=== PATIENT | female | born 1940 | race Caucasian/White ===

== ENCOUNTER → 2023-04-22 10:59 | Outpatient (REF) | payer MEDICARE, SELFPAY | LOC: DHCBC/DCA 10:59 | PROVIDERS: ATTENDING PHYSICIAN Internal Medicine Cardiovascular Disease; FAMILY PHYSICIAN Family Medicine | DX: R07.89 Other chest pain (principal) | CPT/HCPCS: 78452; 93017; A9500; J2785 ==

== ENCOUNTER 2023-11-03 13:51 | Emergency (ER) | payer MEDICARE, SELFPAY ==
[2023-11-03 13:57] VITALS: BP 193/115; BMI 24.5
[2023-11-03 14:15] LABS: % Basophils 0.3 % (0-2); % Eosinophils 0.8 % (0-6); % Immature Granulocytes 0.3 % (0-0.5); % Lymphocytes 14.8 % (20.5-51.1); % Monocytes 7.3 % (1.7-9.3); % Neutrophils 76.5 % (42.2-75.2); Absolute Eosinophils 0.1 10^3/uL (0-0.7); Absolute Lymphocytes 1.8 10^3/uL (1.2-3.4); Absolute Monocytes 0.9 10^3/uL (0.1-0.6); Hematocrit 38.1 % (37.0-47.0); Hemoglobin 13.1 g/dL (12.0-16.0); Mean Corp Hgb Conc. 34.4 g/dL (33.0-37.0); Mean Corpuscular Hgb 30.3 pg (27.0-31.0); Mean Corpuscular Volume 88.2 fL (81.0-99.0); Mean Platelet Volume 9.3 fL (7.4-10.4); Nucleated Red Blood Cells % 0 %; Platelet Count 318 10^3/uL (130-400); Red Blood Cell Count 4.32 10^6/uL (4.20-5.40); Red Cell Dist. Width 14.8 % (11.5-14.5); White Blood Cell Count 11.8 10^3/uL (4.8-10.8)
[2023-11-03 14:25] LABS: ALT (SGPT) 24 U/L (0-35); AST (SGOT) 30 U/L (14-36); Albumin 4.4 g/dl (3.5-5.0); Alkaline Phosphatase 77 U/L (38-126); Blood Urea Nitrogen 14 mg/dl (7-17); Calcium 9.9 mg/dl (8.4-10.2); Carbon Dioxide 27 mmol/L (22-30); Chloride 99 mmol/L (98-107); Estimated Creatinine Clearance 42 ml/min; Glucose 105 mg/dl (70-99); Potassium 3.7 mmol/L (3.5-5.1); Sodium 133 mmol/L (135-145); Total Bilirubin 0.9 mg/dl (0.2-1.3); Total Protein 6.6 g/dl (6.3-8.2); eGFR > 60.00
--- NOTE | 2023-11-03 14:49 | ED.GENMED ---
History of Present Illness
<BREE Garces Jr. Last Filed: 11/04/23 08:06>
General
Chief Complaint: Blood Pressure Problem
Source: patient
Exam Limitations: none
Time Seen by Provider: 11/03/23 14:21
Nursing documentation reviewed up to this point in time: agreed with
History of Present Illness
History of Present Illness:
84-year-old female with past medical history of hypertension previous A-fib hyperlipidemia presenting to the emergency department today with right-sided shoulder she has had this over the past few days pain made worse with movement. Her blood
pressure has been elevated but she has not been taking her blood pressure meds over the past few weeks because she 'did not think of it'. Denies any chest pain shortness of breath nausea vomiting diaphoresis. Denies any additional symptoms
otherwise.
Past History
<Jackson Benjamin Jr., PA-C - Last Filed: 11/04/23 08:06>
Past History
ED Past Medical History: Arrthythmia (afib), HTN, Hypercholesterolemia and Other (diverticulitis, OQA)
ED Past Surgical History: Orthopedic
Social History
Tobacco: Former smoker
Alcohol: None
Drug: None
Personal: Other
Living: with family
Employment: Other
Family History
Family History: Other
Review of Systems
<BREE Garces Jr. Last Filed: 11/04/23 08:06>
Review of Systems
Allergies reviewed?: Yes
All Other Systems: ROS reviewed and negative except as documented in HPI and ROS
Phy Exam
<BREE Garces Jr. Last Filed: 11/04/23 08:06>
Physical Exam
Physical Exam:
GENERAL: Alert , in no apparent distress
EYE: pupils equal and reactive
NECK: Supple, no significant adenopathy.
ENT: o/p clr, mmm.
CARDIAC: Regular rate and rhythm .
LUNGS: Clear breath sounds bilaterally, no acute respiratory distress, no wheezes/rales/rhonchi
ABDOMEN: Soft, without focal tenderness, no r/g, no cvat
NEUROLOGICAL: Alert and oriented, no focal neuro deficits
SKIN: Warm and dry, skin intact.
MUSCULOSKELETAL: Reproducible discomfort to the right shoulder without overlying skin changes tenderness palpation mainly to the deltoid region increased discomfort with pushing and pulling motion at the shoulder no edema, well perfused.
PSYCH: Normal and appropriate interaction.
Course
<Jackson Benjamin Jr., PA-C - Last Filed: 11/04/23 08:06>
Orders/Labs/Results
Orders:
Orders
11/03/23 13:57
Electrocardiogram (*1) Urgent
Reason for Study: Chest Pain
Cardiac Monitoring- Treatment ONCE
EKG- Treatment ONCE
IV Insert/Care/Rem.- Treatment PRN
O2 Therapy [RESP] Urgent
Titrate/Wean O2 to maintain O2 sat greater than (%): 90
Special Instructions: Maintain sats >/=90%
Pulse Ox/spot Check [RESP] Urgent
Quantity: 1
Special Instructions: ON ROOM AIR
11/03/23 14:01
Complete Blood Count/With Diff Urgent
Comprehensive Metabolic Panel Urgent
11/03/23 14:42
Hydrochlorothiazide [Oretic] 25 mg PO NOW STA
CR Shoulder, Trauma - Right Urgent
Comment:
Reason For Exam: shoulder pain to anterior deltoid region
11/03/23 14:44
Oxycodone [Roxicodone] 5 mg PO NOW STA
11/03/23 15:00
Diltiazem [Cardizem] 90 mg PO NOW STA
11/03/23 15:15
Troponin I Urgent
Abnormal Lab Results
11/03/23
14:01
WBC 11.8 H 10^3/uL
(4.8-10.8)
RDW 14.8 H %
(11.5-14.5)
Absolute Neuts (auto) 9.0 H 10^3/uL
(1.4-6.5)
Absolute Monos (auto) 0.9 H 10^3/uL
(0.1-0.6)
Neutrophils % 76.5 H %
(42.2-75.2)
Lymphocytes % 14.8 L %
(20.5-51.1)
Sodium 133 L mmol/L
(135-145)
Glucose 105 H mg/dl
(70-99)
11/03/23 14:01
11/03/23 14:01
Vital Signs
Initial and Last Documented VS:
Initial Vital Signs
Temp Pulse Resp BP Pulse Ox
98.4 F 107 19 193/115 97
11/03/23 13:57 11/03/23 13:57 11/03/23 13:57 11/03/23 13:57 11/03/23 13:57
Last Documented Vital Signs
Temp Pulse Resp BP Pulse Ox
98.4 F 93 13 196/114 97
11/03/23 13:57 11/03/23 16:48 11/03/23 16:03 11/03/23 16:21 11/03/23 16:30
<Cj Bernstein PA-C - Last Filed: 11/03/23 16:51>
Orders/Labs/Results
Orders:
Orders
11/03/23 13:57
Electrocardiogram (*1) Urgent
Reason for Study: Chest Pain
Cardiac Monitoring- Treatment ONCE
EKG- Treatment ONCE
IV Insert/Care/Rem.- Treatment PRN
O2 Therapy [RESP] Urgent
Titrate/Wean O2 to maintain O2 sat greater than (%): 90
Special Instructions: Maintain sats >/=90%
Pulse Ox/spot Check [RESP] Urgent
Quantity: 1
Special Instructions: ON ROOM AIR
11/03/23 14:01
Complete Blood Count/With Diff Urgent
Comprehensive Metabolic Panel Urgent
11/03/23 14:42
Hydrochlorothiazide [Oretic] 25 mg PO NOW STA
CR Shoulder, Trauma - Right Urgent
Comment:
Reason For Exam: shoulder pain to anterior deltoid region
11/03/23 14:44
Oxycodone [Roxicodone] 5 mg PO NOW STA
11/03/23 15:00
Diltiazem [Cardizem] 90 mg PO NOW STA
11/03/23 15:15
Troponin I Urgent
Abnormal Lab Results
11/03/23
14:01
WBC 11.8 H 10^3/uL
(4.8-10.8)
RDW 14.8 H %
(11.5-14.5)
Absolute Neuts (auto) 9.0 H 10^3/uL
(1.4-6.5)
Absolute Monos (auto) 0.9 H 10^3/uL
(0.1-0.6)
Neutrophils % 76.5 H %
(42.2-75.2)
Lymphocytes % 14.8 L %
(20.5-51.1)
Sodium 133 L mmol/L
(135-145)
Glucose 105 H mg/dl
(70-99)
11/03/23 14:01
11/03/23 14:01
Vital Signs
Initial and Last Documented VS:
Initial Vital Signs
Temp Pulse Resp BP Pulse Ox
98.4 F 107 19 193/115 97
11/03/23 13:57 11/03/23 13:57 11/03/23 13:57 11/03/23 13:57 11/03/23 13:57
Last Documented Vital Signs
Temp Pulse Resp BP Pulse Ox
98.4 F 93 13 196/114 97
11/03/23 13:57 11/03/23 16:48 11/03/23 16:03 11/03/23 16:21 11/03/23 16:30
<Jackson Benjamin Jr., PA-C - Last Filed: 11/04/23 08:06>
MDM/Problems Addressed
MDM/Problems Addressed:
84-year-old female presenting to the emergency department today with concerns of right shoulder discomfort ongoing for the last few days. Blood pressure has been elevated but claims that she has not been taking her blood pressure meds. She is
willing to restart the blood pressure medications. She previously was taking diltiazem as well as hydrochlorothiazide. She was given a dose of these here. Denies any ongoing chest pain EKG without signs of acute ischemia labs unremarkable. Pain
reproducible to the right shoulder. Right shoulder pain very unlikely to be referred pain and is reproducible likely meaning pain is mechanical, musculoskeletal. Here blood pressure significantly improving after treatment. X-ray without signs of
acute abnormalities. Troponin negative. Stable for outpatient management return precautions given.
<Cj Bernstein PA-C - Last Filed: 11/03/23 16:51>
*Critical Care Note
Total Time (30-74mins, 75-104mins- exclusive of procedures): Not Applicable
<Cj Bernstein PA-C - Last Filed: 11/03/23 16:51>
Patient Management
Social determinants of health affecting care: Living situation
Discussion with other providers: PCP
Escalation/DeEscalation of care consider admission/obs:
Patient received in sign out pending troponin. Trop is negative. Patient BP remains high however it was noted patient stopped taking her BP meds 2 weeks ago. Patient counselled on importance of taking meds and a new Rx for her was sent to pharmacy.
I advised patient to contact PCP office for follow up visit tomorrow morning. I also messaged patients PCP via [facility] about her ED visit
ED Attending Note
<Jackson Benjamin Jr., PA-C - Last Filed: 11/04/23 08:06>
-
Portions of this chart may have been created with voice recognition software.� Occasional wrong word or��sound alike� substitutions may have occurred due to the inherent limitations of voice recognition software.
Discharge Plan
Departure
Patient Disposition: Home (Routine Discharge)
Date of Disposition: 11/03/23
Time of Disposition: 16:46
Patient with high blood pressure during this ER visit?: Yes
Condition: Good
Covid-19: Not Applicable
Discharge Problem:
Shoulder pain, High blood pressure
Instructions: Shoulder Pain ED, BLOOD PRESSURE
Prescriptions:
New
diltiazem HCl 240 mg capsule,extended release 24hr
240 mg PO DAILY 14 Days Qty: 14 0RF
hydrochlorothiazide 25 mg tablet
25 mg PO DAILY 14 Days Qty: 14 0RF
No Action
Iron
65 mg PO WEEKLY
Rx Instructions:
'2x/wk'
atorvastatin 10 MG tablet
10 mg PO DAILY Qty: 0 0RF
hydrochlorothiazide 25 MG tablet
25 mg PO DAILY
cyanocobalamin (vitamin B-12) 1,000 MCG tablet
1,000 mcg PO DAILY
nitroglycerin 0.4 MG tablet, sublingual
0.4 mg sublingual [id number] PRN (Reason: CHEST PAIN)
Patient Comments:
patient does not remember last time she took but stated it could be months ago
diphenhydramine-acetaminophen [Tylenol PM Extra Strength] 1 EACH tablet
2 ea PO HS PRN (Reason: SLEEP)
diltiazem HCl 240 mg Tablet Extended Release 24 Hr
240 mg PO DAILY
cranberry extract 50 mg Tablet,Chewable
50 mg PO DAILY
mupirocin 2 % ointment
1 applic topical BID Qty: 1 0RF
Patient Comments:
bid x 3 days, last dose 08/24/22 am 0700
multivitamin Tablet
1 tab PO DAILY
cetirizine [Aller-Enrike] 10 mg Tablet
10 mg PO DAILY
potassium chloride 10 mEq Tablet Extended Release
10 meq PO DAILY
cholecalciferol (vitamin D3) 1,000 UNITS tablet
1,000 units PO DAILY
sennosides [Senna Laxative] 8.6 mg Tablet
17.2 mg PO BID Qty: 2 0RF
acetaminophen 325 mg Tablet
650 mg PO Q4HWA Qty: 2 0RF
aspirin 325 mg Tablet
325 mg PO DAILY Qty: 1 0RF
magnesium hydroxide 400 mg/5 mL Suspension
30 ml PO DAILYPRN PRN (Reason: constipation) Qty: 30 0RF
docusate sodium 100 mg Capsule
100 mg PO BID Qty: 1 0RF
pantoprazole [Protonix] 40 mg tablet,delayed release (DR/EC)
40 mg PO DAILY Qty: 30 0RF
meloxicam 15 mg tablet
15 mg PO DAILY Qty: 14 0RF
Rx Instructions:
take with food
post-op
oxycodone 5 mg tablet
5 - 7.5 mg PO Q6HPRN PRN (Reason: 1 tab moderate-2 tabs severe pain) Qty: 30 0RF
Rx Instructions:
Dx surgery
ongoing therapy
Post-op use
prednisone 10 mg tablet
40 mg PO TAPER Qty: 10 0RF
Rx Instructions:
4 tab(40mg) day 1, 3 tabs(30mg) day 2, 2 tabs(20mg) day3,
1 tab (10mg) day 4, then stop
tramadol 50 mg tablet
25 mg PO BID Qty: 10 0RF
Rx Instructions:
Dx Orthopedic surgery
Ongoing therapy
post-op
Referrals:
Parvez Power MD [Family Provider] -
Activity Restrictions/Additional Instructions:
You came to the emergency department today with concerns of shoulder pain. This is likely from your shoulder. The remainder of your workup did not show any emergent findings. Your blood pressure was elevated please resume your diltiazem and
hydrochlorothiazide daily and follow-up closely with the primary care doctor within 1 week. Return to the emergency department any worsening, new or concerning symptoms.
Interventions
Interventions:
*Risk Screen - Suicide Last Done: 11/03/23 13:57
*General Assessment Last Done: 11/03/23 13:57
*Neglect/Abuse Screening Last Done: 11/03/23 13:57
ED- Fall Risk Assessment Last Done: 11/03/23 13:57
*ED COVID-19 Vaccine History Last Done: 11/03/23 13:57
*Nursing Disposition Last Done: 11/03/23 17:31
ED- Cardiac Assessment Last Done: 11/03/23 13:57
ED- Neurological Assessment Last Done: 11/03/23 13:57
ED- Pulmonary Assessment Last Done: 11/03/23 13:57
Discharge Date and Time
Discharge Date/Time: 11/03/23 17:31
Print Language: SLOVENIAN
[2023-11-03] MEDS: ROXICODONE 5 MG PO (15:14)
[2023-11-03] MEDS: ORETIC 25 MG PO (15:14)
[2023-11-03] MEDS: CARDIZEM 90 MG PO (15:14)
[2023-11-03 15:30] VITALS: BP 134/113
[2023-11-03 15:50] VITALS: BP 189/108
[2023-11-03 16:03] VITALS: BP 189/111
[2023-11-03 16:11] LABS: Troponin I < 0.012 ng/ml
[2023-11-03 16:21] VITALS: BP 196/114
== END 2023-11-03 17:31 | disposition home or self-care (01) ==
LOC: EMR 13:51
PROVIDERS: Physician Assistant; EMERGENCY PHYSICIAN Emergency Medicine; FAMILY PHYSICIAN Family Medicine
DX: M25.511 Pain in right shoulder (principal); I10 Essential (primary) hypertension; I48.91 Unspecified atrial fibrillation; E78.00 Pure hypercholesterolemia, unspecified; Z87.891 Personal history of nicotine dependence
CPT/HCPCS: 99283; 73030; 80053; 84484; 85025; 93005

== ENCOUNTER 2023-11-06 23:21 | Inpatient (IN) | payer MEDICARE, SELFPAY ==
[2023-11-06] VITALS (8 sets, daily range): BP systolic 165–194; BP diastolic 90–129; BMI 26.3
--- NOTE | 2023-11-06 19:13 | ED.GENMED ---
History of Present Illness
General
Chief Complaint: Abdominal Symptoms
Time Seen by Provider: 11/06/23 19:13
History of Present Illness
History of Present Illness:
HPI: The patient presents due to a general unwell feeling. She states that she has not eaten in 2 days. She initially told me that she has no appetite and then tells me that she is hungry now and wants to eat. She denies any abdominal pain. As I
am evaluating her, I see an emesis basin that has some saliva in it.
EXAM:
GENERAL: Well appearing in no distress
HEENT: Moist oral mucosa
CARDIOVASCULAR: No murmurs, normal heart rate, regular rhythm, No chest wall tenderness
PULMONARY: No respiratory distress, breath sounds are clear and equal
ABDOMEN: Soft with no peritoneal signs, very mild diffuse abdominal tenderness
NEUROLOGIC: Excellent strength all extremities, no coordination deficits
PSYCHIATRIC: Appropriate mental status, reasonable insight and judgement but appears somewhat confused at times
EXTREMITIES: Nontender, no edema, moves all extremities equally
SKIN: No rash, no lesions
TIME OF INITIAL ENCOUNTER: 7:15 PM
NUMBER AND COMPLEXITY OF PROBLEMS ADDRESSED AT THE ENCOUNTER
� Chronic conditions affecting care: A-fib, high blood pressure, hyperlipidemia, diverticular disease, skin cancer, has had appendectomy, has had colectomy with loop ileostomy in 2016, COPD
� Acute Exacerbation and/or Progression of Chronic Illness: This is an acute problem
� Differential Diagnosis includes: Viral syndrome, mesenteric ischemia, bowel obstruction, dehydration
AMOUNT AND/OR COMPLEXITY OF DATA TO BE REVIEWED AND ANALYZED
� I performed an independent evaluation of and my interpretation is:
EKG:
CT: CT imaging relatively unremarkable with exception of a nodular density of the gallbladder wall
X-rays:
Laboratory Studies: White count 16.8, sodium 120, lactic 1.4
Other:
� Review of other/old records: Sodium has been chronically slightly low but most recently 3 days ago was 133
� Clinical information was obtained by an independent historian: I spoke to the daughter at bedside
� Prescriptions/Medications Considered but not given:
� Further testing considered but not performed:
RISK OF COMPLICATIONS AND/OR MORBIDITY OR MORTALITY OF PATIENT MANAGEMENT
� Social determinants of health affecting care: Lives at home
� Discussion with other providers: Dr. Gutiérrez for admission
� Escalation of care including admission/observation vs risk of discharge considered: The patient has a general unwell feeling and sodium is 120. She was recently on hydrochlorothiazide however the patient states that she did
not take it. I am concerned for some degree of confusion. Suspect hydrochlorothiazide induced hyponatremia.
Past History
Past History
ED Past Medical History: Arrthythmia (afib), HTN, Hypercholesterolemia and Other (diverticulitis, OQA)
ED Past Surgical History: Orthopedic
Social History
Tobacco: Former smoker
Alcohol: None
Drug: None
Personal: Other
Living: with family
Employment: Other
Family History
Family History: Other
Phy Exam
Physical Exam
Physical Exam:
See HPI
Course
Orders/Labs/Results
Orders:
Orders
11/06/23 19:14
0.9% Sodium Chloride 500 ml [Nss] 500 ml IV BOLUS
11/06/23 19:17
Complete Blood Count/With Diff Urgent
Comprehensive Metabolic Panel Urgent
Lipase Urgent
Serum Osmolality Urgent
Comment: ADD ON
11/06/23 19:19
CT Abd/pelvis W Iv Cont Urgent
Comment:
Reason For Exam: abd discomfort; poor po; had appendectomy
11/06/23 19:26
Famotidine [Pepcid] 20 mg IV NOW STA
11/06/23 19:34
Lactic Acid Q4H
Comment: CANCEL 2nd LACTIC ACID IF 1st LACTIC ACID IS LESS THAN 2
11/06/23 21:53
Osmolality, Random Urine Urgent
Urine Sodium Urgent
11/06/23 22:02
Potassium Chloride [KCl] 40 meq 0.9% Sodium Chloride 250 ml [Nss] 250 ml IV NOW
11/06/23 22:49
Admit/Transfer Patient As Directed
Co-Sign Provider:
Level of Care: Inpatient admission
Assign to:: Medical/Surgical
Physician / Group: [email or web address]
Diagnosis: Dehydration, Hyponatremia, Hypokalemia, Abn CT for GB
Reason for Hospitalization: Dehydration, Hyponatremia, Hypokalemia, Abn CT for GB
Expected length of stay greater than two midnights?: Yes
ELOS- Estimated Length of Stay in days: 3
I certify the patient meets the requirements for IP care: Yes
PRN Pain Medication Management As Directed
May give lesser potent ordered pain med per pt: Yes
preference::
Protocol:: Medication orders for pain may be administered in a
manner that supports deferring to patient preference
when the pt is:
- Requesting an ordered lesser potent pain medication.
Least to most potent pain medications are defined
as: acetaminophen < NSAID < tramadol < opioids
(morphine, oxycodone, hydromorphone).
- Requesting a lesser dose of the same medication IF
ORDERED.
- Requesting a less intrusive route of administration
if both routes are prescribed by the provider (PO <
IV).
11/06/23 22:52
Code Status As Directed
Resuscitation Status: Full Code
11/06/23 23:00
Flush (0.9% Sodium Chloride) [Flush (Nss)] See Dose Instructions IV PER PROTOCOL
11/06/23 23:10
0.9% Sodium Chloride 500 ml [Nss] 500 ml IV BOLUS
Abnormal Lab Results
11/06/23
19:17
WBC 16.8 H 10^3/uL
(4.8-10.8)
MCHC 37.5 H g/dL
(33.0-37.0)
Abs Immat Gran (auto) 0.1 H 10^3/uL
(0-0.05)
Absolute Neuts (auto) 13.7 H 10^3/uL
(1.4-6.5)
Absolute Monos (auto) 1.3 H 10^3/uL
(0.1-0.6)
Neutrophils % 81.2 H %
(42.2-75.2)
Lymphocytes % 10.4 L %
(20.5-51.1)
Sodium 120 L mmol/L
(135-145)
Potassium 3.1 L mmol/L
(3.5-5.1)
Chloride 80 L mmol/L
(98-107)
Glucose 131 H mg/dl
(70-99)
Serum Osmolality 253 L mOsm/kg
(275-300)
Calcium 10.5 H mg/dl
(8.4-10.2)
Total Bilirubin 1.4 H mg/dl
(0.2-1.3)
11/06/23 19:17
11/06/23 19:17
Vital Signs
Initial and Last Documented VS:
Initial Vital Signs
Temp Pulse Resp BP Pulse Ox
98.1 F 121 18 190/129 98
11/06/23 19:01 11/06/23 19:01 11/06/23 19:01 11/06/23 19:01 11/06/23 19:01
Last Documented Vital Signs
Temp Pulse Resp BP Pulse Ox
98.1 F 94 16 178/96 98
11/06/23 19:01 11/06/23 21:30 11/06/23 21:30 11/06/23 21:30 11/06/23 19:01
*Critical Care Note
Total Time (30-74mins, 75-104mins- exclusive of procedures): Not Applicable
ED Attending Note
-
Portions of this chart may have been created with voice recognition software.� Occasional wrong word or��sound alike� substitutions may have occurred due to the inherent limitations of voice recognition software.
Discharge Plan
Departure
Patient Disposition: Admit
Date of Disposition: 11/06/23
Time of Disposition: 21:57
Presentation/result/management discussed w/ accepting MD/DO: Hospitalist
Discharge Problem:
Acute hyponatremia
Prescriptions:
No Action
atorvastatin 10 MG tablet
10 mg PO DAILY Qty: 0 0RF
diphenhydramine-acetaminophen [Tylenol PM Extra Strength] 1 EACH tablet
2 ea PO HSPRN PRN (Reason: SLEEP)
diltiazem HCl 240 mg Tablet Extended Release 24 Hr
240 mg PO DAILY
cranberry extract 50 mg Tablet,Chewable
300 mg PO DAILY
hydrochlorothiazide 25 mg tablet
25 mg PO DAILY 14 Days Qty: 14 0RF
ibuprofen [Advil] 200 mg Tablet
200 mg PO Q6HPRN PRN (Reason: mild pain)
meloxicam 15 mg tablet
7.5 mg PO DAILY
zaleplon 5 mg Capsule
5 mg PO HSPRN PRN (Reason: sleep)
Referrals:
Parvez Power MD [Family Provider] -
Interventions
Interventions:
*Risk Screen - Suicide Last Done: 11/06/23 19:07
*General Assessment Last Done: 11/06/23 19:07
*Neglect/Abuse Screening Last Done: 11/06/23 19:07
ED- Fall Risk Assessment Last Done: 11/06/23 19:11
*ED COVID-19 Vaccine History Last Done: 11/06/23 19:07
VF-Lvjgqs-Ezjbtijqhv Assessment Last Done: 11/06/23 19:11
Discharge Date and Time
Print Language: BELARUSIAN
--- NOTE | 2023-11-06 19:19 | EDRN ---
Pt says she has not felt like eating for two days however now she is hungry and is requesting food. No nausea currently.
[2023-11-06 19:24] LABS: % Basophils 0.2 % (0-2); % Eosinophils 0.2 % (0-6); % Immature Granulocytes 0.4 % (0-0.5); % Lymphocytes 10.4 % (20.5-51.1); % Monocytes 7.6 % (1.7-9.3); % Neutrophils 81.2 % (42.2-75.2); Absolute Immature Granulocytes 0.1 10^3/uL (0-0.05); Absolute Lymphocytes 1.8 10^3/uL (1.2-3.4); Absolute Monocytes 1.3 10^3/uL (0.1-0.6); Absolute Neutrophils 13.7 10^3/uL (1.4-6.5); Hematocrit 39.5 % (37.0-47.0); Hemoglobin 14.8 g/dL (12.0-16.0); Mean Corp Hgb Conc. 37.5 g/dL (33.0-37.0); Mean Corpuscular Hgb 30.6 pg (27.0-31.0); Mean Corpuscular Volume 81.8 fL (81.0-99.0); Mean Platelet Volume 9.4 fL (7.4-10.4); Nucleated Red Blood Cells % 0 %; Platelet Count 375 10^3/uL (130-400); Red Blood Cell Count 4.83 10^6/uL (4.20-5.40); Red Cell Dist. Width 13.5 % (11.5-14.5); White Blood Cell Count 16.8 10^3/uL (4.8-10.8)
[2023-11-06] MEDS: NSS 500 IV ×2 (19:24→23:10)
--- NOTE | 2023-11-06 19:25 | EDRN ---
Pt unable to review medications with this RN and says she takes her medications on her own. emissions testing technician came to discuss pt's medications with her and asked if she took her medications this morning. Pt said she only takes 2 medications in the
morning but she has not been any of her medications for the past two days. Pt says there is not reason why she didn't take them.
--- NOTE | 2023-11-06 19:30 | PHANOTE ---
med rec note- patient stated she has not taking her medication in days, ecw has recent note on 10/27/23 patient by choice stopped her blood pressure medication. patient recently here at [facility] but no record of admission, will try to call daughter
listed in ecw. Patient ecw also show potassium 10meq daily but no pharmacy fills.
[2023-11-06 19:40] LABS: ALT (SGPT) 25 U/L (0-35); AST (SGOT) 28 U/L (14-36); Albumin 4.9 g/dl (3.5-5.0); Alkaline Phosphatase 88 U/L (38-126); Blood Urea Nitrogen 13 mg/dl (7-17); Calcium 10.5 mg/dl (8.4-10.2); Carbon Dioxide 25 mmol/L (22-30); Chloride 80 mmol/L (98-107); Estimated Creatinine Clearance 39 ml/min; Glucose 131 mg/dl (70-99); Lipase 120 U/L (23-300); Potassium 3.1 mmol/L (3.5-5.1); Sodium 120 mmol/L (135-145); Total Bilirubin 1.4 mg/dl (0.2-1.3); eGFR > 60.00
[2023-11-06] MEDS: PEPCID 20 MG IV (19:43)
[2023-11-06 19:56] LABS: Lactic Acid 1.4 mmol/L (0.7-2.0)
--- NOTE | 2023-11-06 22:02 | EDRN ---
Called pharmacy for KCL 40meq
[2023-11-06] MEDS: KCL 270 MEQ IV (22:12)
[2023-11-06 22:30] LABS: Osmolality Serum 253 mOsm/kg (275-300)
--- NOTE | 2023-11-06 22:43 | HPS.HSE ---
Family Physician
-
Family Physician: Parvez Power
Chief Complaint
-
[place] unwell, poor PO intake
History of Present Illness
83F independent living Res of [facility] , HX HTN , HX AF, HLD seen at ER on 11/03/23 for uncontrol HTN sent home on Diltiazem and HCTZ , seen at ER to night for evalaution of being unwell
- associated with poor PO for last 2 days due to reported being unwell
- however she hydrates her self and able to keep fluid down
- Denied N/V
- Unsure , she is taking HCTZ and Diltiazem coz she reports she did not receive Rx
She is very vague historian and there is disparity in HPI to me , ER and ELECTRONIC SYSTEMS TECHNICIAN
Medical History
Past Medical History
Past Medical History: Reports Arrhythmia (A Fib ), HTN and Hypercholesterolemia
Past Surgical History: Reports Other
Social History
Tobacco: Non-smoker
Alcohol: None
Drug: None
Family History
Family History: Not pertinent
Allergies / Home Medications
Allergies reflects when Allergies were last updated in [facility].
Home Medications with original date entered in [facility]
Allergy/Medication List:
Allergies
Allergy/AdvReac Type Severity Reaction Status Date / Time
aspartame Allergy Rash Verified 11/06/23 19:01
aspirin [From Aspirin EC] Allergy she had Verified 11/06/23 19:01
rectal
bleeding
Home Medications
atorvastatin 10 mg tablet 10 mg PO DAILY ##0 01/01/16
diphenhydramine 25 mg-acetaminophen 500 mg tablet (Tylenol PM Extra Strength) 2 ea PO HSPRN PRN SLEEP 05/23/20
cranberry extract 50 mg chewable tablet 300 mg PO DAILY Supplement 07/31/22
diltiazem HCl 240 mg tablet,extended release 24 hr 240 mg PO DAILY Blood Pressure 05/12/23
hydrochlorothiazide 25 mg tablet 25 mg PO DAILY 14 days #14 tabs 11/03/23
ibuprofen 200 mg tablet (Advil) 200 mg PO Q6HPRN PRN mild pain 11/06/23
meloxicam 15 mg tablet 7.5 mg PO DAILY 11/06/23
zaleplon 5 mg capsule 5 mg PO HSPRN PRN sleep 11/06/23
Review of Systems
-
Constitutional: Reports See HPI and Fatigue
EENT: Reports No Symptoms
Respiratory: Reports No Symptoms
Cardiac: Reports No Symptoms
Abdomen/GI: Reports No Symptoms
: Reports No Symptoms
Musculoskeletal: Reports No Symptoms
Skin: Reports No Symptoms
Neurological: Reports See HPI and Weakness
Endocrine: Reports No Symptoms
Hematologic/Lymphatic: Reports No Symptoms
Psych: Reports No Symptoms
Physical Exam
Vital Signs
Vital Signs
Temp Pulse Resp BP Pulse Ox
98.1 F 94 16 178/96 98
11/06/23 19:01 11/06/23 21:30 11/06/23 21:30 11/06/23 21:30 11/06/23 19:01
Physical Exam
General: Well Nourished, No Apparent Distress, Comfortable and Conversant
HEENT: NormoCephalic and Anicteric
Respiratory: Clear
Cardiac: S1/S2 and Regular Rhythm; No Murmur
GI: Soft, Non Tender, Non Distended and Normal Bowel Sounds
Genito-urinary: Deferred by me
Musculoskeletal: No Edema
Skin: Warm and Dry
Psych: Anxious
Laboratory Results
-
11/06/23 19:17
11/06/23 19:17
Laboratory Results
Lactic Acid Cancelled 11/06/23 23:15
Total Bilirubin 1.4 mg/dl (0.2-1.3) H 11/06/23 19:17
AST 28 U/L (14-36) 11/06/23 19:17
ALT 25 U/L (0-35) 11/06/23 19:17
Alkaline Phosphatase 88 U/L (38-126) 11/06/23 19:17
Lipase 120 U/L (23-300) 11/06/23 19:17
Data Reviewed
-
CT Scan: Report Reviewed by me
Lab Data: Labs Reviewed by me
Old Records: Reviewed
Impression/Plan
-
Reviewed VS: afebrile HR 90s BP 180/95
Data
WCC 16.8
Na 120 - baseline low 130s
K 3.1
Cl 80
BG 131
TB 1.4
nl AST and nl ALT
nl Lipase
CT AP W IV contrast
Focal nodular wall thickening of the gallbladder fundus measuring up to 1.0 cm, possibly representing a polyp or adherent sludge ball. Consider further evaluation with dedicated right upper quadrant ultrasound as clinically indicated.
NO PRIOR t hospitalist admission:
ASSESSMENT & PLAN
Sever hyponatremia with associated hypochloremia and hypokalemia
Associated volume loss and dehydration due to poor PO and recent HCTZ
Suspect HCTZ related
- s/p KCL Miles 40x 1
- associated with poor appetite
- pending Ur Na, Ur Osm, Sr Osm
- to complete IV NS 1 L initiated at ER then observ without IVF
- f/u Na in AM
- stop HCTZ
- trend BMP
CT relatively unremarkable except for focal nodular thickening at GB.
- hi WCC
- TB 1.4
- nl AST and ALT
- clear for now
- US abdomen complete in AM
- GI consult
Poorly control HTN
- cont Diltiazem 240 daily
- add IV Hydralazine PRN for SBP > 165, DBP > 110
- Observe BP
HLD
- cont atorvastatin
Very vague historian and there is disparity in HPI to me , ER and ELECTRONIC SYSTEMS TECHNICIAN
Independent living Res of [facility]
- suspect Cognitive impairment
- OT for BCAT ( brief cognitive abasement test )
- PT
- CRM consult
DVT Px: LMWH
Code: Full
IP TLM
[2023-11-07] VITALS: BP 173/102
[2023-11-07 00:30] VITALS: BP 159/102; BMI 26.5
--- NOTE | 2023-11-07 01:03 | PTCARENOTE ---
Pt. admitted from E.D., awake, alert, forgetful, skin intact, bed alarm intact, call gamboa within reach.
[2023-11-07 07:28] VITALS: BP 149/88
[2023-11-07] MEDS: LIPITOR 10 MG PO (08:40)
[2023-11-07] MEDS: CARDIZEM CD 240 MG PO (08:40)
[2023-11-07 08:51] LABS: Hematocrit 38.5 % (37.0-47.0); Hemoglobin 13.9 g/dL (12.0-16.0); Mean Corp Hgb Conc. 36.1 g/dL (33.0-37.0); Mean Corpuscular Hgb 31.3 pg (27.0-31.0); Mean Corpuscular Volume 86.7 fL (81.0-99.0); Mean Platelet Volume 9.5 fL (7.4-10.4); Platelet Count 304 10^3/uL (130-400); Red Blood Cell Count 4.44 10^6/uL (4.20-5.40); White Blood Cell Count 10.8 10^3/uL (4.8-10.8)
[2023-11-07 09:13] LABS: ALT (SGPT) 21 U/L (0-35); AST (SGOT) 24 U/L (14-36); Albumin 4.1 g/dl (3.5-5.0); Alkaline Phosphatase 75 U/L (38-126); Blood Urea Nitrogen 13 mg/dl (7-17); Calcium 9.8 mg/dl (8.4-10.2); Carbon Dioxide 23 mmol/L (22-30); Chloride 91 mmol/L (98-107); Estimated Creatinine Clearance 40 ml/min; Glucose 104 mg/dl (70-99); Potassium 3.6 mmol/L (3.5-5.1); Sodium 124 mmol/L (135-145); Total Protein 6.1 g/dl (6.3-8.2); eGFR > 60.00
[2023-11-07 09:19] LABS: COVID-19 Antigen Negative (Negative)
[2023-11-07 09:43] LABS: Cortisol, Random 21.7 ug/dl; TSH 2.16 uIU/ml (0.47-4.68)
[2023-11-07 11:12] LABS: Urine Albumin Negative (Neg - Trace); Urine Bilirubin Negative (Negative); Urine Character Clear (Clear); Urine Color Yellow; Urine Glucose Negative (Negative); Urine Ketone Trace (Negative); Urine Leukocyte Trace (Negative); Urine Nitrite Negative (Negative); Urine Occult Blood Negative (Negative); Urine Urobilinogen Negative (Neg - 1+)
[2023-11-07 11:31] LABS: Osmolality Urine 360 mOsm/kg (300-900)
--- NOTE | 2023-11-07 11:39 | CM ---
Patient seen bedside.
IA completed.
Patient lives at [facility], independent living.
Patient independent prior to admission. Ambulates with RW, has a cane.
patient aslo has a shower chair.
patient known ot [facility], after knee replacement.
patient does not drive.
Per patient PT saw her here and recommending HC. (notes not in yet)
patient would like a script for [facility].
PCP: Dr Power
Pharmacy: [facility] on [address]
Plan: back to [facility] living, needs script for PT/OT.
patient has no transportation, agreeable to [employer] van, cost will be $90 per [place].
[2023-11-07 12:01] LABS: Urine Sodium 91 mmol/L (30-90)
[2023-11-07 12:51] LABS: Urine Bacteria Few (Negative); Urine Red Blood Cell 0-2 /HPF (0-2)
[2023-11-07 13:03] VITALS: BP 171/101; BP 199/119; PULSE 80; O2SAT 99
--- NOTE | 2023-11-07 14:12 | W.PN.HOSP.TC ---
Today's Communication/Plan
-
Watch sodium
USS abdomen
DNR
Assessment / Plan
Assessment / Plan
83-year-old female with poor p.o. intake and not feeling well. Patient stated that kitchen crew changed at [facility] and she does not like the food there does not fully cooked. She has not had anything to eat for 3 days. Asking if she can eat.
CT abdomen pelvis-focal nodular thickening of the gallbladder fundus 1 cm, likely representing a polyp or adherent sludge ball
CVS: S1-S2 normal
Chest: CTA B/L
Abdomen: Soft, NT / Bowel sounds present
Extremities: No edema, normal pulses
OTOLOGIST: Non focal exam
# Severe hyponatremia and hypokalemia
Likely secondary to hydrochlorothiazide, hold NSAIDs
Stop hydrochlorothiazide and do not resume.
Serum osmolality is low
Check urine sodium and urine osmolality
Received 1 L of IV fluids in the ER. Hold further
Potassium replaced in the ER-continue to follow
Osmolality studies indicate also excess ADH release
Modest fluid restriction
Follow BMP
# Poor PO intake- Hold Ibuprofen.
Add PPI
Patient stated that kitchen crew changed at [facility] and she does not like the food there does not fully cooked. She has not had anything to eat for 3 days.
Unclear if she has NSAID induced gastritis
# Nodular thickening in the gallbladder
Follow LFTs
Ultrasound of the abdomen-Routine
# Hypertension-Continue diltiazem 240 mg daily
Blood pressure was high on admission- May need additional meds. Follow blood pressure
# Paroxysmal atrial fibrillation-currently in sinus rhythm on EKG history of ablation. On Cardizem. Not on AC as OP ? ( Daughter will find out)
# Hyperlipidemia-continue atorvastatin
# Cognitive impairment per discussion with daughter
# History of colectomy with loop ileostomy 2015
# Sleep apnea
# Insomnia-on zaleplon
# Diverticulosis
# Ex-smoker
# DVT prophylaxis-Lovenox
# DNR per discussion with daughter
Discussed with nursing.
Spoke to patient's daughter Esthela burk. Also discussed that she should not be taking Advil or hydrochlorothiazide at discharge.
Anticipated Discharge: Within 24 hours
Subjective/Interval History
-
Date of Service: November 07, 2023
Objective Data
-
Labs:
Laboratory Results
11/07/23
08:26
WBC 10.8
Hgb 13.9
Hct 38.5
Plt Count 304
Sodium 124 L
Potassium 3.6
Chloride 91 L
Carbon Dioxide 23
BUN 13
Creatinine 0.9
Glucose 104 H
Calcium 9.8
Total Bilirubin 1.0
AST 24
ALT 21
Alkaline Phosphatase 75
Vital Signs:
Vital Signs
Temp Pulse Resp BP Pulse Ox
98.1 F 89 16 149/88 96
11/07/23 07:28 11/07/23 08:40 11/07/23 07:28 11/07/23 08:40 11/07/23 08:00
I&O
11/06/23 11/07/23 11/08/23
06:59 06:59 06:59
Intake Total 480 / 480
Balance 480 / 480
[2023-11-07 15:20] VITALS: BP 151/99
[2023-11-07] MEDS: TYLENOL 1000 MG PO (16:16)
[2023-11-07] MEDS: PROTONIX 40 MG PO (16:16)
[2023-11-07] MEDS: LOVENOX 40 MG SC (17:48)
[2023-11-07] MEDS: FLORASTOR 250 MG PO (20:16)
[2023-11-07] MEDS: ZOFRAN 4 MG IV (20:47)
[2023-11-07] MEDS: AMBIEN 2.5 MG PO (21:08)
[2023-11-07 23:02] VITALS: BP 136/82
[2023-11-07] MEDS: TYLENOL PO (23:19)
[2023-11-08 07:27] VITALS: BP 151/75
--- NOTE | 2023-11-08 09:05 | W.PN.HOSP.TC ---
Addendum entered and electronically signed by Volodymyr Metcalf MD 11/08/23 09:37:
I saw and evaluated the patient. I reviewed the resident�s note and agree with findings and plan as documented in the resident�s note.
Patient reports she feels 'lousy.'. She reports that she is having difficulty urinating and having bowel movements. She did have some shortness of breath overnight which is resolved.
151/75, 78, 20, 98.0 �F, 95% RA
Gen: NAD, AAOx3.
Eyes: EOMI, PERRLA, no scleral icterus.
Neck: supple.
CV: RRR, +S1/S2, no m/r/g.
Resp: CTAB, no rales, wheezes, or rhonchi.
Abd: +BS, soft, epigastric TTP, ND
Skin: No rashes.
Neuro: CN 2-12 intact, non-focal.
Psych: Normal mood and affect.
Severe hypotonic hyponatremia:
-TSH and fasting cortisol normal
-serum Osm 253, UOsm 360, Gabriel 91
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
-Sodium improved to 124 as of 11/07/23 after 1L NS on admission, AM Na pending
-Initiate fluid restriction of 1440 cc/day
-Will not restart hydrochlorothiazide, no further NSAIDs
-c/s renal
Essential HTN:
-start Hydralazine 25mg TID
Focal nodular wall thickening of the gallbladder fundus:
-Check abdominal ultrasound
Patient's daughter updated at length over the phone.
Total time spent on today's encounter was 50 minutes which included time spent in counseling the patient/family regarding diagnosis and treatment plan as listed above, goals of care, and symptom management. Case was discussed with nursing staff,
specialists, and care coordinators/case management. All labs and imaging personally reviewed by me. Remainder the time spent in detailed review of previous records, lab data, imaging, and other medical provider documentation.
Original Note:
Today's Communication/Plan
-
- Follow BMP
- Fluid restriction
- Nephrology consult
Assessment / Plan
Assessment / Plan
83-year-old female with poor p.o. intake and not feeling well. Patient stated that kitchen crew changed at [facility] and she does not like the food there does not fully cooked. She has not had anything to eat for 3 days. Asking if she can eat.
# Severe hyponatremia and hypokalemia
Likely secondary to hydrochlorothiazide, hold NSAIDs
Stop hydrochlorothiazide and do not resume.
Serum osmolality is low
Check urine sodium and urine osmolality
Received 1 L of IV fluids in the ER. Hold further
Potassium replaced in the ER-continue to follow
Osmolality studies indicate also excess ADH release
Modest fluid restriction
Follow BMP
# Poor PO intake- Hold Ibuprofen.
Add PPI
Patient stated that kitchen crew changed at [facility] and she does not like the food there does not fully cooked. She has not had anything to eat for 3 days.
Unclear if she has NSAID induced gastritis
# Nodular thickening in the gallbladder
Follow LFTs
Ultrasound of the abdomen-Routine
# Hypertension-Continue diltiazem 240 mg daily
Blood pressure was high on admission- May need additional meds. Follow blood pressure
# Paroxysmal atrial fibrillation-currently in sinus rhythm on EKG history of ablation. On Cardizem. Not on AC as OP ? ( Daughter will find out)
# Hyperlipidemia-continue atorvastatin
# Cognitive impairment per discussion with daughter
# History of colectomy with loop ileostomy 2015
# Sleep apnea
# Insomnia-on zaleplon
# Diverticulosis
# Ex-smoker
# DVT prophylaxis-Lovenox
# DNR per discussion with daughter
Anticipated Discharge: 24 - 48 hours
Subjective/Interval History
-
Date of Service: November 08, 2023
Objective Data
-
Labs:
Laboratory Results
11/08/23
08:25
WBC Pending
Hgb Pending
Hct Pending
Plt Count Pending
Sodium Pending
Potassium Pending
Chloride Pending
Carbon Dioxide Pending
BUN Pending
Creatinine Pending
Glucose Pending
Calcium Pending
Vital Signs:
Vital Signs
Temp Pulse Resp BP Pulse Ox
98.0 F 78 20 151/75 95
11/08/23 07:27 11/08/23 07:27 11/08/23 07:27 11/08/23 07:27 11/08/23 07:27
I&O
11/07/23 11/08/23 11/09/23
06:59 06:59 06:59
Intake Total 480 / 480 120 / 120
Balance 480 / 480 120 / 120
Review of Systems
-
History Source: Patient
All other systems: Reviewed and negative
Physical Exam
-
HEENT: Normocephalic, Atraumatic and Moist Mucous Membranes
Respiratory: Clear to Auscultation and Non Labored Respirations
Cardiac: Regular Rhythm and S1/S2
GI: Soft, Nontender and Nondistended
Genito-urinary: No Costovertebral Tender
Musculoskeletal: No Clubbing, No Cyanosis and No Edema
Skin: Warm, Dry and IV Access / Catheter Site
Neuro: AO x 3 and Nonfocal/Grossly Intact
Psych: Calm
[2023-11-08] MEDS: PROTONIX 40 MG PO (09:43)
[2023-11-08] MEDS: TYLENOL 1000 MG PO ×2 (09:43→15:25)
[2023-11-08] MEDS: FLORASTOR 250 MG PO ×2 (09:43→21:14)
[2023-11-08] MEDS: CARDIZEM CD 240 MG PO (09:43)
[2023-11-08] MEDS: LIPITOR 10 MG PO (09:43)
[2023-11-08] MEDS: APRESOLINE 25 MG PO ×3 (11:05→21:16)
[2023-11-08 11:18] VITALS: BMI 26.5
--- NOTE | 2023-11-08 11:38 | CM ---
Patient seen beside, confirms resides at [facility]. Will need script for PT upon discharge for [facility]. Patient will need transportation home, understands cost with [employer] [facility]. CM will continue to follow for all discharge planning needs.
Plan; Return to [facility] when stable, will need script for PT upon discharge ([facility]), will need [facility] transport.
[2023-11-08] MEDS: CITROMA 300 ML PO (12:14)
--- NOTE | 2023-11-08 13:13 | W.CON.NEPH ---
Consultation
-
Date/Time Consultation Requested: 11/08/2023 8:26AM
Date/Time Consultation Performed: 11/08/2023 1:13PM
Requesting Provider: Volodymyr Metcalf
Performing Provider: Briana Bal
Reason for Consultation: hyponatremia
Medical History
-
Chief Complaint: hyponatremia
History of Present Illness:
Ms. Cavazos is an 83YOF with PMH of HTN, Afib, DLD who was seen in ER recently for uncontrolled HTN and was discharged on diltiazem and HCTZ on 11/02. She returned on 11/05 with poor PO intake and was found to have hyponatremia to 120. We are
consulted for assistance in management of hyponatremia.
Patient appears to be a poor historian. States that she has not been eating 'for weeks' and that her residential has the worse food and edi manager. On reading other notes, it appears that she was not feeling well for 2 days and was unable to eat during
that time. SHe states that she was taking HCTZ per the ER instructions.
Her Na has improved from 120 --> 124 just with holding HCTZ and improved intake.
Past Medical History
HTN
Afib
DLD
Past Surgical History: None
Social History
Tobacco: Non-Smoker
Alcohol: None
Drug: None
Living: Correction
Employment: Not Employed
Family History
Family History: Not Pertinent
Allergies / Home Medications
Allergy/AdvReac Type Severity Reaction Status Date / Time
aspartame Allergy Rash Verified 11/06/23 19:01
aspirin [From Aspirin EC] Allergy she had Verified 11/06/23 19:01
rectal
bleeding
�Medication �Instructions �Recorded �Confirmed �Type
atorvastatin 10 mg tablet 10 mg PO DAILY ##0 01/01/16 11/06/23 Rx
diphenhydramine 25 2 ea PO HSPRN PRN SLEEP 05/23/20 11/06/23 History
mg-acetaminophen 500 mg tablet
(Tylenol PM Extra Strength)
cranberry extract 50 mg chewable 300 mg PO DAILY Supplement 07/31/22 11/06/23 History
tablet
diltiazem HCl 240 mg 240 mg PO DAILY Blood Pressure 07/31/22 11/06/23 History
tablet,extended release 24 hr
hydrochlorothiazide 25 mg tablet 25 mg PO DAILY 14 days #14 tabs 11/03/23 11/06/23 Rx
ibuprofen 200 mg tablet (Advil) 200 mg PO Q6HPRN PRN mild pain 11/06/23 11/06/23 History
meloxicam 15 mg tablet 7.5 mg PO DAILY Anti-Inflammatory 11/06/23 11/06/23 History
zaleplon 5 mg capsule 5 mg PO HSPRN PRN sleep 11/06/23 11/06/23 History
Review of Systems
-
Unable to obtain full review of systems at this time due to: Dementia
History Source: Patient
All other systems: Negative unless noted
Abdomen/GI: Nausea
Physical Exam
Vital Signs
Vital Signs
Temp Pulse Resp BP Pulse Ox
98.0 F 78 20 151/75 95
11/08/23 07:27 11/08/23 07:27 11/08/23 07:27 11/08/23 07:27 11/08/23 07:27
Lab Results
eGFR > 60.00 11/07/23 08:26
Albumin 4.1 g/dl (3.5-5.0) 11/07/23 08:26
Physical Exam
General: Awake, Alert, Oriented, No Distress and Nontoxic
HEENT: PERRL, EOMI, Anicteric, Conjunctivae Clear, Ear/Nose Intact and Hearing Normal
Respiratory: Clear, Normal Excursion and Nonlabored Respirations
Cardiac: S1/S2 and No Edema
Breast: Deferred by me
Abdomen: Soft, Nontender and Nondistended
Rectal: Deferred by Provider
Genito-urinary: No Costovertebral Tender
Musculoskeletal: No Clubbing, No Cyanosis and No Edema
Skin: No Clubbing, No Cyanosis and Normal Turgor
Hematologic/Lymphatic: No Cervical Lymphadenopathy
Psych: Appropriate
Data Reviewed
-
CT Scan: Report Reviewed by me (1. No significant acute abnormality identified in the abdomen or pelvis, as described above.)
Ultrasound: Report Reviewed by me ( 1. Small gallbladder polyps measure up to 3 mm in diameter, likely benign. 2. No additional sonographic abnormalities demonstrated.)
Labs: Labs Reviewed by me
Old Records: Reviewed
Assessment/Plan
-
Assessment:
hyponatremia
hypoK
nodular thickening of gall bladder
HTN
pAfib
DLD
Cognitive impariment
Sleep apnea
Plan:
urine osm/urine sodium consistent with thiazide induced hyponatremia
na improving while off HCTZ
should continue to hold HCTZ and do not resume even as outpatient.
could be some component of tea/toast diet as well
encouraged adequate PO intake. no need for FR as of right now
awaiting sodium from today, continue to trend Na
BPs acceptable today, continue to monitor for now
[2023-11-08 13:45] LABS: % Basophils 0.3 % (0-2); % Immature Granulocytes 0.5 % (0-0.5); % Monocytes 9.1 % (1.7-9.3); % Neutrophils 79.1 % (42.2-75.2); Absolute Eosinophils 0.1 10^3/uL (0-0.7); Absolute Immature Granulocytes 0.1 10^3/uL (0-0.05); Absolute Lymphocytes 1.1 10^3/uL (1.2-3.4); Absolute Neutrophils 8.3 10^3/uL (1.4-6.5); Hematocrit 37.6 % (37.0-47.0); Hemoglobin 13.3 g/dL (12.0-16.0); Mean Corp Hgb Conc. 35.4 g/dL (33.0-37.0); Mean Corpuscular Hgb 31.3 pg (27.0-31.0); Mean Corpuscular Volume 88.5 fL (81.0-99.0); Mean Platelet Volume 9.6 fL (7.4-10.4); Nucleated Red Blood Cells % 0 %; Platelet Count 324 10^3/uL (130-400); Red Blood Cell Count 4.25 10^6/uL (4.20-5.40); Red Cell Dist. Width 14.6 % (11.5-14.5); White Blood Cell Count 10.5 10^3/uL (4.8-10.8)
[2023-11-08 14:20] LABS: Blood Urea Nitrogen 14 mg/dl (7-17); Calcium 9.7 mg/dl (8.4-10.2); Carbon Dioxide 27 mmol/L (22-30); Chloride 87 mmol/L (98-107); Estimated Creatinine Clearance 40 ml/min; Glucose 98 mg/dl (70-99); Potassium 3.4 mmol/L (3.5-5.1); Sodium 123 mmol/L (135-145); eGFR > 60.00
[2023-11-08 15:00] VITALS: BP 136/67
[2023-11-08] MEDS: LOVENOX 40 MG SC (17:09)
[2023-11-08] MEDS: KCL 40 MEQ PO (17:34)
[2023-11-08] MEDS: AMBIEN 2.5 MG PO (21:14)
[2023-11-08] MEDS: TYLENOL PO (23:04)
[2023-11-08 23:05] VITALS: BP 135/72
[2023-11-09 07:00] VITALS: BP 147/76
[2023-11-09] MEDS: APRESOLINE 25 MG PO (08:10)
[2023-11-09] MEDS: CARDIZEM CD 240 MG PO (08:10)
[2023-11-09] MEDS: FLORASTOR 250 MG PO (08:10)
[2023-11-09] MEDS: TYLENOL 1000 MG PO (08:10)
[2023-11-09] MEDS: LIPITOR 10 MG PO (08:10)
[2023-11-09] MEDS: PROTONIX 40 MG PO (08:10)
[2023-11-09 08:20] LABS: Hematocrit 37.9 % (37.0-47.0); Hemoglobin 13.6 g/dL (12.0-16.0); Mean Corp Hgb Conc. 35.9 g/dL (33.0-37.0); Mean Corpuscular Hgb 30.8 pg (27.0-31.0); Mean Corpuscular Volume 85.7 fL (81.0-99.0); Mean Platelet Volume 10.5 fL (7.4-10.4); Platelet Count 258 10^3/uL (130-400); Red Blood Cell Count 4.42 10^6/uL (4.20-5.40); Red Cell Dist. Width 14.6 % (11.5-14.5); White Blood Cell Count 10.5 10^3/uL (4.8-10.8)
[2023-11-09 08:43] LABS: Blood Urea Nitrogen 13 mg/dl (7-17); Carbon Dioxide 27 mmol/L (22-30); Chloride 95 mmol/L (98-107); Estimated Creatinine Clearance 40 ml/min; Glucose 87 mg/dl (70-99); Potassium 4.7 mmol/L (3.5-5.1); Sodium 129 mmol/L (135-145); eGFR > 60.00
--- NOTE | 2023-11-09 09:01 | W.PN.HOSP.TC ---
Addendum entered and electronically signed by Volodymyr Metcalf MD 11/09/23 12:21:
Total time spent on d/c = 32 min. This included today's physical exam, progress note, review of laboratory and diagnostic data, preparation of discharge documents and prescriptions, and discussions about the pt's hospital course and discharge plan
with the patient and other medical services coordinator involved in the patient's care.
Addendum entered and electronically signed by Volodymyr Metcalf MD 11/09/23 10:44:
I saw and evaluated the patient. I reviewed the resident�s note and agree with findings and plan as documented in the resident�s note.
Patient c/o SOB (although does not appear SOB).
Gen: NAD, AAOx3.
Eyes: EOMI, PERRLA, no scleral icterus.
Neck: supple.
CV: remains RRR, +S1/S2, no m/r/g.
Resp: faint rales L base
Abd: +BS, soft, epigastric TTP, ND
Skin: No rashes.
Neuro: CN 2-12 intact, non-focal.
Psych: Normal mood and affect.
Severe hypotonic hyponatremia:
-TSH and fasting cortisol normal
-serum Osm 253, UOsm 360, Gabriel 91
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
-s/p 1L NS on admission, Na now 129
-case discussed with nephrology. No FR required. Will not restart HCTZ and will encourage PO intake.
Essential HTN:
-cont Hydralazine 25mg TID
Focal nodular wall thickening of the gallbladder fundus:
-abdominal ultrasound: Small gallbladder polyps measure up to 3 mm in diameter, likely benign. No additional sonographic abnormalities demonstrated.
Medically cleared for discharge. Case management aware.
Original Note:
Today's Communication/Plan
-
- Hydralazine as needed for hypertension.
- Continue fluid restriction.
- Follow BMP.
- PT/OT
- Discharge planning.
Assessment / Plan
Assessment / Plan
83-year-old female with poor p.o. intake and not feeling well. Patient stated that kitchen crew changed at [facility] and she does not like the food there does not fully cooked. She has not had anything to eat for 3 days. Asking if she can eat.
Euvolemic hyponatremia
Acute hypokalemia, resolved
- Likely secondary to hydrochlorothiazide and NSAIDs, and poor oral intake
- Stop hydrochlorothiazide and do not resume.
- Received 1 L of IV fluids in the ER. Hold further
- Potassium replaced in the ER; continue to follow
- Osmolality studies indicate also excess ADH release
- Modest fluid restriction
- Hyponatremia improving now.
- Follow BMP
Poor oral intake
- Hold Ibuprofen.
- Add PPI
- Patient stated that kitchen crew changed at [facility] and she does not like the food there does not fully cooked. She has not had anything to eat for 3 days.
- Unclear if she has NSAID induced gastritis
Nodular thickening in the gallbladder
- Follow LFTs
- Ultrasound of the abdomen unremarkable.
Hypertension
- Continue diltiazem 240 mg daily
- Blood pressure was high on admission
Paroxysmal atrial fibrillation
- currently in sinus rhythm on EKG history of ablation.
- On Cardizem. Not on AC as OP?
Hyperlipidemia
- continue atorvastatin
History of colectomy with loop ileostomy 2015
Sleep apnea
Insomnia
- on zaleplon
Cognitive impairment
- Per admitting doctor's discussion with daughter
VTE prophylaxis
- Enoxaparin
Code status
- DNR per discussion with daughter.
Anticipated Discharge: 24 - 48 hours
Subjective/Interval History
-
Date of Service: November 09, 2023
Objective Data
-
Labs:
Laboratory Results
11/09/23
06:18
WBC 10.5
Hgb 13.6
Hct 37.9
Plt Count 258 D
Sodium 129 L
Potassium 4.7 D
Chloride 95 L
Carbon Dioxide 27
BUN 13
Creatinine 0.9
Glucose 87
Calcium 10.0
Vital Signs:
Vital Signs
Temp Pulse Resp BP Pulse Ox
97.8 F 86 16 135/72 98
11/08/23 23:05 11/08/23 23:05 11/08/23 23:05 11/08/23 23:05 11/08/23 23:05
I&O
11/08/23 11/09/23 11/10/23
06:59 06:59 06:59
Intake Total 120 / 120 240 / 240
Output Total 1400 / 1400
Balance 120 / 120 -1160 / -1160
Review of Systems
-
History Source: Patient
All other systems: Reviewed and negative
Physical Exam
-
HEENT: Normocephalic, Atraumatic and Moist Mucous Membranes
Respiratory: Clear to Auscultation and Non Labored Respirations
Cardiac: Regular Rhythm and S1/S2
GI: Soft, Nontender and Nondistended
Genito-urinary: No Costovertebral Tender
Musculoskeletal: No Clubbing, No Cyanosis and No Edema
Skin: Warm, Dry and IV Access / Catheter Site
Neuro: AO x 3 and Nonfocal/Grossly Intact
Psych: Calm
[2023-11-09 11:00] VITALS: BP 141/69
--- NOTE | 2023-11-09 11:34 | W.DCSUMMARY ---
Addendum entered and electronically signed by Volodymyr Metcalf MD 11/09/23 12:37:
Read, reviewed, and agree. See same day progress note for additional details.
Original Note:
Discharge Summary
Discharge Data
Date of Admission: 11/06/23
Date of Discharge: 11/09/23
-
Pending Results: No
Hospital Course
Primary discharge diagnosis
* Thiazide-induced hyponatremia
Secondary discharge diagnoses
- Euvolemic hypotonic hyponatremia
- Syndrome of inappropriate antidiuretic hormone secretion
- Acute hypokalemia
- Poor oral intake
- Essential hypertension
- Paroxysmal atrial fibrillation
- Mixed hyperlipidemia
- Sleep apnea
- Chronic insomnia
- History of colectomy with loop ileostomy
Hospital course
Amanda Cavazos, age 83, came to the emergency on 11-06-23 due to feeling unwell. She has had reduced oral intake for the preceding 2-3 days. She was found to have severe hyponatremia of 120 on admission. Based on the presentation and lab work, this
was attributed to the use of hydrochlorothiazide and poor oral intake. The former was held and she was kept on fluid restriction. Nephrology was also consulted. Her sodium improved subsequently, and she was feeling improved by the time of the
discharge. Her vitals remained stable throughout this visit and other blood work unremarkable. Recommended to stop hydrochlorothiazide indefinitely, and to avoid nonsteroidal anti-inflammatory drugs if possible. Please follow-up with your primary in
less than 1 week to discuss alternate anti-hypertensives, and re-check BMP in 1 week.
Discharge Plan
-
Patient Disposition: Home with Home Care
Discharge Diagnosis/Procedures: Hypotonic hyponatremia
Condition: Good
Diet: Low Cholesterol and Low Sodium
Activity: With assistance and As tolerated
Driving Restrictions: As prior to admission
Blood Work: BMP in 1 week
Other Services: VN, PT and OT
Instructions: Hyponatremia
Referrals:
Parvez Power MD [Family Provider] -
Additional Discharge Medication Instructions: STOP HCTZ and Advil. Do not Restart.
Prescriptions:
Continued
atorvastatin 10 MG tablet
10 mg PO DAILY Qty: 0 0RF
diphenhydramine-acetaminophen [Tylenol PM Extra Strength] 1 EACH tablet
2 ea PO HSPRN PRN (Reason: SLEEP)
diltiazem HCl 240 mg Tablet Extended Release 24 Hr
240 mg PO DAILY
cranberry extract 50 mg Tablet,Chewable
300 mg PO DAILY
zaleplon 5 mg Capsule
5 mg PO HSPRN PRN (Reason: sleep)
Discontinued
hydrochlorothiazide 25 mg tablet
25 mg PO DAILY 14 Days Qty: 14 0RF
ibuprofen [Advil] 200 mg Tablet
200 mg PO Q6HPRN PRN (Reason: mild pain)
meloxicam 15 mg tablet
7.5 mg PO DAILY
Discharge Orders:
Discharge Patient (As Directed); Ordered 11/09/23
Ordered By: Volodymyr Metcalf
Discharge Date and Time
Print Language: LUXEMBOURGISH
--- NOTE | 2023-11-09 11:52 | CM ---
Addendum entered by Genoveva Parsons 11/09/23 12:57:
CM spoke with patients daughter, Esthela, reports Caridad from [facility] can provide transportation home, will arrive around 2:00 p.m. to bring patient home. Patient agreeable to discharge. Script for therapy in patients chart.
Original Note:
Patient seen bedside, discussed plan for discharge today. Patients daughter Esthela on phone, CM reviewed with daughter discharge plan. Daughter reports she will see if [facility] can provide transportation home, otherwise patient will need Van,
daughter will provide payment over the phone.
Patient reports she feels confused on if she would like to appeal her discharge and asked if CM can return in an hour. IMM reviewed, patient refused to sign, placed in chart. Script obtained by resident for PT/OT for Vuong therapy to restart with
patient upon return to [facility]. Update to nurse and resident/Hospitalist regarding discharge. CM will continue to follow for all discharge planning needs.
Plan; return to [facility] [place] with script for PT/OT, patient unsure if she would like to appeal her discharge.
--- NOTE | 2023-11-09 14:52 | W.PN.NEPH.PH ---
Today's Communication / Plan
-
dc
Assessment/Plan
-
Assessment:
hyponatremia
hypoK
nodular thickening of gall bladder
HTN
pAfib
DLD
Cognitive impariment
Sleep apnea
Plan:
urine osm/urine sodium consistent with thiazide induced hyponatremia
na improving while off HCTZ
should continue to hold HCTZ and do not resume even as outpatient.
could be some component of tea/toast diet as well
encouraged adequate PO intake. no need for FR as of right now
Na now improved to 129
BPs acceptable
likely for discharge todya
-
-
Date of Service: November 09, 2023
CC / HPI / ROS
-
Chief Complaint:
hyponatremia
History of Present Illness:
Na improved to 129
Review of Systems:
encouraged adequate PO intake
Labs
-
Labs:
WBC 10.5 10^3/uL (4.8-10.8) 11/09/23 06:18
RBC 4.42 10^6/uL (4.20-5.40) 11/09/23 06:18
Hgb 13.6 g/dL (12.0-16.0) 11/09/23 06:18
Hct 37.9 % (37.0-47.0) 11/09/23 06:18
Plt Count 258 10^3/uL (130-400) D 11/09/23 06:18
Sodium 129 mmol/L (135-145) L 11/09/23 06:18
Potassium 4.7 mmol/L (3.5-5.1) D 11/09/23 06:18
Chloride 95 mmol/L (98-107) L 11/09/23 06:18
Carbon Dioxide 27 mmol/L (22-30) 11/09/23 06:18
BUN 13 mg/dl (7-17) 11/09/23 06:18
Creatinine 0.9 mg/dL (0.6-1.0) 11/09/23 06:18
eGFR > 60.00 11/09/23 06:18
Glucose 87 mg/dl (70-99) 11/09/23 06:18
Calcium 10.0 mg/dl (8.4-10.2) 11/09/23 06:18
Albumin 4.1 g/dl (3.5-5.0) 11/07/23 08:26
Physical Exam
-
Vital Signs:
Vital Signs
Temp Pulse Resp BP Pulse Ox
97.8 F 80 18 147/76 97
11/09/23 07:00 11/09/23 07:00 11/09/23 07:00 11/09/23 07:00 11/09/23 07:00
Cardiovascular:: Regular rate and rhythm
Respiratory:: Bilateral: Coarse
Lung Excursion:: Normal
Abdomen:: Nontender and Soft
Bowel Sounds:: Normal
Extremity Edema:: None: Bilateral:
Peacock Catheter: No
== END 2023-11-09 14:06 | disposition home health service (06) | DRG 645 ==
LOC: 4 WEST ACU 23:21
PROVIDERS: Hospitalist; Student in an Organized Health Care Education/Training Program; ADMITTING PHYSICIAN Internal Medicine; ATTENDING PHYSICIAN Internal Medicine; CONSULT PHYSICIAN Specialist; EMERGENCY PHYSICIAN Emergency Medicine; FAMILY PHYSICIAN Family Medicine
DX: E22.2 Syndrome of inappropriate secretion of antidiuretic hormone (principal); E87.6 Hypokalemia; I48.0 Paroxysmal atrial fibrillation; I10 Essential (primary) hypertension; E78.2 Mixed hyperlipidemia
CPT/HCPCS: 74177; 76700; 80048; 80053; 81003; 81015; 82533; 83605; 83690; 83930; 83935; 84300; 84443; 85025; 85027; 87811; 96361; 96374; 96375; 97162; 97167; 97535; 99285; Q9967

== ENCOUNTER → 2023-11-11 16:16 | Outpatient (REF) | payer MEDICARE, SELFPAY ==
[2023-11-11 17:27] LABS: Urine Albumin Negative (Neg - Trace); Urine Bilirubin Negative (Negative); Urine Character Clear (Clear); Urine Color Yellow; Urine Glucose Negative (Negative); Urine Ketone Negative (Negative); Urine Leukocyte Negative (Negative); Urine Nitrite Negative (Negative); Urine Occult Blood Negative (Negative); Urine Urobilinogen Negative (Neg - 1+)
== END ==
LOC: OLABMERCHI 16:16
PROVIDERS: ATTENDING PHYSICIAN Hospitalist
DX: N39.0 Urinary tract infection, site not specified (principal)
CPT/HCPCS: 81003; 87086

== ENCOUNTER 2023-11-20 20:14 | Inpatient (IN) | payer MEDICARE, SELFPAY ==
[2023-11-20 17:36] VITALS: BMI 26.0
[2023-11-20 17:37] VITALS: BP 170/104
[2023-11-20 17:38] VITALS: BP 170/104
--- NOTE | 2023-11-20 17:45 | ED.GENMED ---
History of Present Illness
General
Chief Complaint: Weakness
Source: patient
Exam Limitations: none
Time Seen by Provider: 11/20/23 17:40
History of Present Illness
History of Present Illness:
See MDM
Past History
Past History
ED Past Medical History: Arrthythmia (afib), HTN, Hypercholesterolemia and Other (diverticulitis, OQA)
ED Past Surgical History: Orthopedic
Social History
Tobacco: Former smoker
Alcohol: None
Drug: None
Personal: Other
Living: with family
Employment: Other
Family History
Family History: Other
Phy Exam
Physical Exam
Physical Exam:
See MDM
Course
Orders/Labs/Results
Orders:
Orders
11/20/23 17:44
Urinalysis Reflex To Culture Urgent
0.9% Sodium Chloride 1000 ml [Nss] 1,000 ml IV BOLUS
11/20/23 17:45
Electrocardiogram (*1) Urgent
Reason for Study: Shortness of Breath
EKG- Treatment ONCE
11/20/23 17:47
COVID-19 Antigen Urgent
Source: Nasal Swab
Complete Blood Count/With Diff Urgent
Comprehensive Metabolic Panel Urgent
Magnesium Urgent
Comment: ADDON
Troponin I Urgent
11/20/23 17:54
Ondansetron Injectable [Zofran] 4 mg .ROUTE .STK-MED ONE
11/20/23 17:55
Ondansetron Injectable [Zofran] 4 mg IV NOW STA
11/20/23 18:24
Add On- LAB Urgent
Tests Added?: magnesium
11/20/23 18:35
Potassium Chloride [KCl] 40 meq 0.9% Sodium Chloride 250 ml [Nss] 250 ml IV NOW
11/20/23 19:32
Magnesium Sulfate 4 Gram/100Ml [Magnesium Sulfate] 4 gram in 100 ml IV NOW
11/20/23 19:33
Calcium Gluc 4 g (18.6 mEq)/250 mL NSS over 1 hr ONCE Calcium Gluconate 4,000 mg 0.9% Sodium Chloride 250 ml [Nss] 250 ml IV ONCE
Abnormal Lab Results
11/20/23
17:47
RBC 4.15 L 10^6/uL
(4.20-5.40)
MCH 31.1 H pg
(27.0-31.0)
RDW 14.7 H %
(11.5-14.5)
Absolute Neuts (auto) 8.0 H 10^3/uL
(1.4-6.5)
Absolute Monos (auto) 0.7 H 10^3/uL
(0.1-0.6)
Neutrophils % 77.2 H %
(42.2-75.2)
Lymphocytes % 15.1 L %
(20.5-51.1)
Potassium 2.3 L* mmol/L
(3.5-5.1)
Chloride 118 H mmol/L
(98-107)
Carbon Dioxide 16 L mmol/L
(22-30)
Creatinine 0.5 L mg/dL
(0.6-1.0)
Glucose 102 H mg/dl
(70-99)
Calcium 5.9 L* mg/dl
(8.4-10.2)
Magnesium 1.1 L mg/dl
(1.6-2.3)
Total Protein 3.9 L g/dl
(6.3-8.2)
Albumin 2.2 L g/dl
(3.5-5.0)
11/20/23 17:47
11/20/23 17:47
Vital Signs
Initial and Last Documented VS:
Initial Vital Signs
Temp Pulse Resp BP Pulse Ox
97.9 F 107 16 170/104 99
11/20/23 17:37 11/20/23 17:37 11/20/23 17:37 11/20/23 17:37 11/20/23 17:37
Last Documented Vital Signs
Temp Pulse Resp BP Pulse Ox
97.9 F 86 15 162/85 98
11/20/23 17:37 11/20/23 19:00 11/20/23 19:00 11/20/23 19:00 11/20/23 18:45
MDM/Problems Addressed
Differential Diagnosis Includes:
HPI and MDM Narrative:
83-year-old female presenting with persistent weakness and fatigue. She was evaluated 2 weeks ago and found to be hyponatremic. They initially thought this was related to hydrochlorothiazide. She was placed on a water restriction and sent home.
Patient states she has not been feeling right ever since she was discharged. She states symptoms are reoccurring similar to when she was diagnosed with hyponatremia. She has not been drinking much water today and feels dehydrated. She states she
feels somewhat short of breath.
Physical exam
General: Weak and fatigued
HEENT: protecting airway. Dry mucous membranes
Neck: appears supple
CV: No evidence of cyanosis. Mild tachycardia
Resp: No accessory muscle use. Lungs clear
Abd: Non-distended
Extremities: No deformities. No leg edema or tenderness
Neuro: alert
Psych: Normal affect
Skin: Intact
Problems Addressed including Acute and Chronic Conditions affecting care:
1. Generalized fatigue
Acuity: acute
Prognosis: stable
Details: Given her history, will repeat sodium levels. Will obtain basic blood work including urinalysis
2. Shortness of breath
Acuity: acute
Prognosis: stable
Details: Obtain COVID and chest x-ray and EKG
3. Hypokalemia
Acuity: acute
Prognosis: unstable
Details: Will start IV potassium
4. Hypocalcemia
Acuity: acute
Prognosis: unstable
Details: Will obtain magnesium level prior to starting calcium infusion
Updates
6 PM, patient became nauseous and vomited. Will give Zofran
Patient found to be hypokalemic and hypocalcemic. Magnesium was added which was also found to be low. Will replete the potassium in addition to the magnesium before starting calcium
Differential Diagnosis (but not limited to): COVID, pneumonia, hyponatremia, dehydration, UTI
Testing considered: D-dimer
Drug therapy (if applicable): OTC meds, please see d/c instruction regarding Rx drugs
Amount and/or Complexity of Data Reviewed
Clinical info obtained from: Patient
External data reviewed: Recent admission for hyponatremia that was believed to be related to hydrochlorothiazide
Labs I independently reviewed (but not limited to): Hypokalemia, hypocalcemia
Radiology: N/A
Pulse Ox: not hypoxic
EKG independently reviewed: Sinus tachycardia, left axis, no STEMI
Conservation Technician: Sinus tachycardia
Critical Care: The high probability of a clinically significant, sudden or life threatening deterioration of the endocrine system(s) required my full and direct attention, intervention and personal management. The aggregate critical care time was 35
minutes. This time is in addition to time spent performing reported procedures but includes the following:
[x] Data Review and interpretation
[x] Patient assessment and monitoring of vital signs
[x] Documentation
[x] Medication orders and management
Risk of Complication:
Social Determinants of health: Good social support
Discussed with other providers: Hospitalist
Escalation of Care includes Admit/Obs: Given the significant lab abnormalities, will admit
Occasional wrong word or 'sound a like' substitutions may have occurred due to the inherent limitations of voice recognition software. Read the chart carefully and recognize, using context, where substitutions have occurred.
*Critical Care Note
Total Time (30-74mins, 75-104mins- exclusive of procedures): 35 min
ED Attending Note
-
Portions of this chart may have been created with voice recognition software.� Occasional wrong word or��sound alike� substitutions may have occurred due to the inherent limitations of voice recognition software.
Discharge Plan
Departure
Patient Disposition: Admit
Date of Disposition: 11/20/23
Time of Disposition: 19:34
Admit to: IMU
Presentation/result/management discussed w/ accepting MD/DO: Hospitalist
Discharge Problem:
Hypokalemia, Hypomagnesemia, Hypocalcemia
Prescriptions:
No Action
atorvastatin 10 MG tablet
10 mg PO DAILY Qty: 0 0RF
diltiazem HCl 240 mg Tablet Extended Release 24 Hr
240 mg PO DAILY
acetaminophen [Tylenol Extra Strength] 500 mg Tablet
1,000 mg PO Q6HPRN PRN (Reason: mild pain)
oxycodone 5 mg Tablet
5 mg PO Q8HPRN PRN (Reason: severe pain)
Patient Comments:
11/20/23: last filled 11/18/23 for 21 tablets over 7 days
Referrals:
Parvez Power MD [Family Provider] -
Interventions
Interventions:
*Risk Screen - Suicide Last Done: 11/20/23 17:44
*General Assessment Last Done: 11/20/23 17:37
*Neglect/Abuse Screening Last Done: 11/20/23 17:44
ED- Fall Risk Assessment Last Done: 11/20/23 17:45
*ED COVID-19 Vaccine History Last Done: 11/20/23 17:37
ED- Cardiac Assessment Last Done: 11/20/23 17:45
ED- Neurological Assessment Last Done: 11/20/23 17:45
ED- Pulmonary Assessment Last Done: 11/20/23 17:45
Discharge Date and Time
Print Language: ROMANIAN
[2023-11-20 17:54] LABS: % Basophils 0.2 % (0-2); % Eosinophils 0.5 % (0-6); % Immature Granulocytes 0.4 % (0-0.5); % Lymphocytes 15.1 % (20.5-51.1); % Monocytes 6.6 % (1.7-9.3); % Neutrophils 77.2 % (42.2-75.2); Absolute Eosinophils 0.1 10^3/uL (0-0.7); Absolute Lymphocytes 1.6 10^3/uL (1.2-3.4); Absolute Monocytes 0.7 10^3/uL (0.1-0.6); Hematocrit 37.8 % (37.0-47.0); Hemoglobin 12.9 g/dL (12.0-16.0); Mean Corp Hgb Conc. 34.1 g/dL (33.0-37.0); Mean Corpuscular Hgb 31.1 pg (27.0-31.0); Mean Corpuscular Volume 91.1 fL (81.0-99.0); Mean Platelet Volume 8.8 fL (7.4-10.4); Nucleated Red Blood Cells % 0 %; Platelet Count 316 10^3/uL (130-400); Red Blood Cell Count 4.15 10^6/uL (4.20-5.40); Red Cell Dist. Width 14.7 % (11.5-14.5); White Blood Cell Count 10.4 10^3/uL (4.8-10.8)
[2023-11-20] MEDS: NSS 1000 IV ×2 (17:56→22:24)
[2023-11-20] MEDS: ZOFRAN 4 MG IV (17:56)
[2023-11-20 18:00] VITALS: BP 171/99
[2023-11-20 18:13] LABS: ALT (SGPT) 12 U/L (0-35); AST (SGOT) 14 U/L (14-36); Albumin 2.2 g/dl (3.5-5.0); Alkaline Phosphatase 38 U/L (38-126); Blood Urea Nitrogen 8 mg/dl (7-17); Calcium 5.9 mg/dl (8.4-10.2); Carbon Dioxide 16 mmol/L (22-30); Chloride 118 mmol/L (98-107); Estimated Creatinine Clearance 59 ml/min; Glucose 102 mg/dl (70-99); Potassium 2.3 mmol/L (3.5-5.1); Sodium 140 mmol/L (135-145); Total Bilirubin 0.4 mg/dl (0.2-1.3); Total Protein 3.9 g/dl (6.3-8.2); eGFR > 60.00
[2023-11-20 18:19] LABS: Troponin I < 0.012 ng/ml
[2023-11-20 18:33] LABS: COVID-19 Antigen Negative (Negative)
[2023-11-20] MEDS: KCL 270 MEQ IV (18:41)
[2023-11-20 19:00] VITALS: BP 162/85
[2023-11-20 19:30] LABS: Magnesium 1.1 mg/dl (1.6-2.3)
--- NOTE | 2023-11-20 19:40 | HPS.HSE ---
Family Physician
-
Family Physician: Parvez Power
Chief Complaint
-
generalized weakness
History of Present Illness
83-year-old with past medical history of A-fib, hyperlipidemia, hypertension presenting to has been generalized weakness since her discharge from the hospital. Patient stated very weak and tired. Today she had multiple episodes of nausea vomiting
and diarrhea. Patient denied any abdominal pain. Patient denied any poor appetite. Patient denied any headache, dizziness. Patient denied any fever, chills, cough. Patient denied any dysuria hematuria. patient stated not taking HCTZ since the
discharge.
Upon arrival noted electrolyte imbalance. Patient received IV KCl, mag rider, saline, calcium gluconate.
Admitted for further management
Medical History
Past Medical History
Past Medical History: Reports Other
Additional Past Medical History:
Hypertension COPD
Paroxysmal A-fib
Coronary artery disease
Dementia
Obstructive sleep apnea,
Past Surgical History: Reports Other
Additional Past Surgical History:
Left knee replacement
Status post diverting loop ileostomy for sigmoid colectomy
Right total knee replacement
Appendectomy bilateral
cataract extraction
Carpal tunnel surgery
Social History
Tobacco: Former Smoker
Alcohol: Occasional
Drug: None
Personal: Single
Living: Alone
Family History
Family History: Not pertinent
Allergies / Home Medications
Allergies reflects when Allergies were last updated in [facility].
Home Medications with original date entered in [facility]
Allergy/Medication List:
Allergies
Allergy/AdvReac Type Severity Reaction Status Date / Time
aspartame Allergy Rash Verified 11/06/23 19:01
aspirin [From Aspirin EC] Allergy she had Verified 11/06/23 19:01
rectal
bleeding
Home Medications
atorvastatin 10 mg tablet 10 mg PO DAILY ##0 01/01/16
diltiazem HCl 240 mg tablet,extended release 24 hr 240 mg PO DAILY Blood Pressure 07/31/22
acetaminophen 500 mg tablet (Tylenol Extra Strength) 1,000 mg PO Q6HPRN PRN mild pain 11/20/23
oxycodone 5 mg tablet 5 mg PO Q8HPRN PRN severe pain 11/20/23
Review of Systems
-
Constitutional: Reports No Symptoms
EENT: Reports No Symptoms
Respiratory: Reports No Symptoms
Cardiac: Reports No Symptoms
Abdomen/GI: Reports Nausea, Vomiting and Diarrhea
: Reports No Symptoms
Musculoskeletal: Reports No Symptoms
Skin: Reports No Symptoms
Neurological: Reports Weakness
Endocrine: Reports No Symptoms
Hematologic/Lymphatic: Reports No Symptoms
Psych: Reports No Symptoms
Physical Exam
Vital Signs
Vital Signs
Temp Pulse Resp BP Pulse Ox
97.9 F 86 15 162/85 98
11/20/23 17:37 11/20/23 19:00 11/20/23 19:00 11/20/23 19:00 11/20/23 18:45
Physical Exam
General: Well Developed, Well Nourished and No Apparent Distress
HEENT: NormoCephalic, Moist mucous membranes and Atraumatic
Respiratory: Clear
Cardiac: S1/S2 and Regular Rhythm; No Murmur or Rub
GI: Soft, Non Tender, Non Distended and Normal Bowel Sounds; No Organomegaly
Rectal: Deferred by Provider
Musculoskeletal: No Clubbing, No Cyanosis and No Edema
Skin: No Rash
Neuro: AO x 3 and Nonfocal/grossly intact
Psych: Calm
Laboratory Results
-
11/20/23 17:47
11/20/23 17:47
Laboratory Results
Total Bilirubin 0.4 mg/dl (0.2-1.3) 11/20/23 17:47
AST 14 U/L (14-36) 11/20/23 17:47
ALT 12 U/L (0-35) 11/20/23 17:47
Alkaline Phosphatase 38 U/L (38-126) 11/20/23 17:47
Troponin I < 0.012 ng/ml 11/20/23 17:47
Data Reviewed
-
Lab Data: Labs Reviewed by me
Impression/Plan
-
#electrolyte imbalance unclear cause
-k 2.3, ca 5.9, mag 1.1, co2 16
-phos and tSH pending
-Calcium gluconate in ER, mag rider in ER, potassium chloride ER patient received normal saline
-Patient received normal saline in the ER
-normal saline Continued
-Nephrology consulted
#N/V/D likely viral
-continue to monitor
-consider stool studies if continued to have diarrhea.
#weakness
-PT/OT consutled
#Hypertension
- Continue diltiazem 240 mg daily
#Paroxysmal atrial fibrillation
-EKG with sinus tachycardia with PACs
- On Cardizem.
#Hyperlipidemia
- continue atorvastatin
#History of colectomy with loop ileostomy 2015
#VTE prophylaxis
- Enoxaparin
#Code status
- DNR
--- NOTE | 2023-11-20 19:41 | W.PN.UPDATE ---
Update Note
Progress Note Update
This note serves as an addendum to the H&P by fire lookout SALIMA Caryl CAMACHO
HPI
83F Recent HX symptomatic HCTZ induced hyponatremia , on fluid restriction and sent home
Return to ER for evaluation of similar reoccurring similar to when she was diagnosed with hyponatremia.
- decreased water intake and feels dehydrated.
- She states she feels somewhat short of breath.
Reports she still have HCTZ pills and she is taking it but how reliable HX is uncertain due to cognitive dysfunction ?
PHX
Reviewed VS:
Vital Signs
Temp Pulse Resp BP Pulse Ox
97.9 F 86 15 162/85 98
11/20/23 17:37 11/20/23 19:00 11/20/23 19:00 11/20/23 19:00 11/20/23 18:45
PE
General: Weak and fatigued
HEENT: protecting airway. Dry mucous membranes
Neck: appears supple
CV: No evidence of cyanosis. Mild tachycardia
Resp: No accessory muscle use. Lungs clear
Abd: Non-distended
Extremities: No deformities. No leg edema or tenderness
Neuro: alert
Psych: Normal affect
Data
Laboratory Tests
11/09/23 11/20/23
06:18 17:47
Sodium 129 L 140
Potassium 2.3 L*
Chloride 118 H
Carbon Dioxide 16 L
Creatinine 0.5 L
eGFR > 60.00
Calcium 5.9 L*
Magnesium 1.1 L
Troponin I < 0.012
Albumin 2.2 L
SARS-CoV-2 Antigen Negative
ASSESSMENT & PLAN
Severe hypokalemia
Severe hypomagnesemia
Severe Hypocalcemia
Hypoalbuminemia
Associated NAG MA
Nl Na
HX thiazide induced hyponatremia - no HCTZ listed
- DDx: accidental HCTZ use given cognitive disorder, Nutritional due to tea and toast diet , Hypoparathyroid
- Etiology od electrolyte dysfunction is uncertain
- s/p IV Ca gluconate 4gm , S/p IV Mg 4 mg, IV K Miles 40
- F/U CMP - correct as needed
- check PTH and TSH
- Renal consult
Reports she still have HCTZ pills and she is taking it but how reliable HX is uncertain due to cognitive dysfunction ?
Essential HTN; on Diltiazem
HLD: on Atorvastatin
Prx AF; on Diltiazem for rate control
DLD
Cognitive impartment
Sleep apnea
DVT Px: SQH
Code: Full
IP TLM
[2023-11-20 20:26] LABS: Phosphorus 2.4 mg/dl (2.5-4.5)
[2023-11-20] MEDS: CALCIUM GLUCONATE 290 MG IV (20:34)
--- NOTE | 2023-11-20 20:53 | EDRN ---
pt denies any recent diarrhea when asked.
[2023-11-20 20:56] LABS: TSH Reflex To Free T4 1.84 uIU/ml (0.47-4.68)
[2023-11-20 21:18] LABS: Urine Albumin Negative (Neg - Trace); Urine Bilirubin Negative (Negative); Urine Character Clear (Clear); Urine Color Straw; Urine Glucose Negative (Negative); Urine Ketone Negative (Negative); Urine Leukocyte Trace (Negative); Urine Nitrite Negative (Negative); Urine Occult Blood Negative (Negative); Urine Urobilinogen Negative (Neg - 1+)
[2023-11-20 21:30] LABS: Urine Bacteria Few (Negative); Urine Squamous Cell 0-2 /LPF (Few)
[2023-11-20 21:31] LABS: Urine Red Blood Cell 0-2 /HPF (0-2); Urine White Cell 0-2 /HPF (0-5)
[2023-11-20 21:35] VITALS: BP 185/104; BMI 26.6
[2023-11-20] MEDS: ROXICODONE 5 MG PO (22:38)
[2023-11-20 23:00] VITALS: BMI 26.6
[2023-11-20] MEDS: MAGNESIUM SULFATE 100 IV (23:27)
--- NOTE | 2023-11-20 23:35 | PTCARENOTE ---
Receive pt from ER. Pt alert oriented 3, in no distress, relatively anxious. Pt assist X1 to her bed, feels weak. Pt oriented to the room call gamboa within reach. Pt denies SOB, chest pain, or diarrhea, but reports slight nausea, no vomiting. Calcium
gluconate and potassium chloride infusing. Pt on NSR on telemonitor. BP ekyy=548/104, HR=88, T=97.8, SpO2=97% on RA. BP hivqrqbjg=220/78. IVFs Magnesium rider also infusing as per order. Will continue to monitor the pt.
[2023-11-20 23:38] VITALS: BP 128/78
[2023-11-21] VITALS (8 sets, daily range): BP systolic 109–165; BP diastolic 68–96; PULSE 81; O2SAT 96; BMI 26.6
[2023-11-21] MEDS: ZOFRAN 4 MG IV ×2 (03:58→10:39)
[2023-11-21] MEDS: LIPITOR 10 MG PO (08:25)
[2023-11-21] MEDS: CARDIZEM CD 240 MG PO (08:25)
[2023-11-21 08:26] LABS: Hemoglobin 11.8 g/dL (12.0-16.0); Mean Corp Hgb Conc. 34.7 g/dL (33.0-37.0); Mean Corpuscular Hgb 31.1 pg (27.0-31.0); Mean Corpuscular Volume 89.7 fL (81.0-99.0); Mean Platelet Volume 9.2 fL (7.4-10.4); Platelet Count 319 10^3/uL (130-400); Red Blood Cell Count 3.79 10^6/uL (4.20-5.40); White Blood Cell Count 9.1 10^3/uL (4.8-10.8)
[2023-11-21 08:49] LABS: Blood Urea Nitrogen 6 mg/dl (7-17); Calcium 9.7 mg/dl (8.4-10.2); Carbon Dioxide 26 mmol/L (22-30); Chloride 99 mmol/L (98-107); Estimated Creatinine Clearance 51 ml/min; Glucose 96 mg/dl (70-99); Potassium 4.2 mmol/L (3.5-5.1); Sodium 135 mmol/L (135-145); eGFR > 60.00
--- NOTE | 2023-11-21 10:39 | W.CON.NEPH ---
Consultation
-
Date/Time Consultation Requested: 11/21/2023 7:00 AM
Date/Time Consultation Performed: 11/21/2023 1030 AM
Requesting Provider: Dr. Capellan
Performing Provider: Dr. Avila
Reason for Consultation: Hypocalcemia hypokalemia hypomagnesemia
Medical History
-
Chief Complaint: Hypocalcemia hypokalemia hypomagnesemia
History of Present Illness:
Ms. Cavazos is an 83YOF with PMH of HTN and AFIB on diltiazem, DLD who had seen in the ER recently for uncontrolled HTN and was discharged on diltiazem and HCTZ on 11/02. She returned on 11/05 with poor PO intake and was found to have hyponatremia to
120. She was eventually discharged off hydrochlorothiazide and to be maintained on diltiazem for her hypertension. She is a history of dyslipidemia and is maintained on statin therapy. She also has a history of significant chronic pain maintained
on oxycodone. She presented to ER with generalized weakness since her discharge from the hospital in late October 2023. Patient stated very weak and tired. Today she had multiple episodes of nausea vomiting and diarrhea. Patient denied any
abdominal pain. Patient denied any poor appetite. Patient denied any headache, dizziness. Patient denied any fever, chills, cough. Patient denied any dysuria hematuria. patient stated not taking HCTZ since the discharge. On admission to the
hospital she was profoundly hypokalemic and hypomagnesemic and hypocalcemic and Nephrology was consulted.
P
Past Medical History
HTN
Afib
DLD
Past Surgical History: None
Social History
Tobacco: Non-Smoker
Alcohol: None
Drug: None
Living: Correction
Employment: Not Employed
Family History
Family History: Not Pertinent
Allergies / Home Medications
Allergy/AdvReac Type Severity Reaction Status Date / Time
aspartame Allergy Rash Verified 11/06/23 19:01
aspirin [From Aspirin EC] Allergy she had Verified 11/06/23 19:01
rectal
bleeding
�Medication �Instructions �Recorded �Confirmed �Type
atorvastatin 10 mg tablet 10 mg PO DAILY ##0 01/01/16 11/20/23 Rx
diltiazem HCl 240 mg 240 mg PO DAILY Blood Pressure 07/31/22 11/20/23 History
tablet,extended release 24 hr
acetaminophen 500 mg tablet 1,000 mg PO Q6HPRN PRN mild pain 11/20/23 11/20/23 History
(Tylenol Extra Strength)
oxycodone 5 mg tablet 5 mg PO Q8HPRN PRN severe pain 11/20/23 11/20/23 History
Review of Systems
-
All other systems: Negative unless noted
Constitutional: Other (Poor appetite)
Abdomen/GI: Vomiting and Diarrhea
Physical Exam
Vital Signs
Vital Signs
Temp Pulse Resp BP Pulse Ox
97.7 F 83 16 163/79 96
11/21/23 07:25 11/21/23 07:25 11/21/23 07:25 11/21/23 07:25 11/21/23 07:25
Lab Results
11/21/23 07:19
11/21/23 07:19
WBC 9.1 10^3/uL (4.8-10.8) 11/21/23 07:19
RBC 3.79 10^6/uL (4.20-5.40) L 11/21/23 07:19
Hgb 11.8 g/dL (12.0-16.0) L 11/21/23 07:19
Hct 34.0 % (37.0-47.0) L 11/21/23 07:19
Plt Count 319 10^3/uL (130-400) 11/21/23 07:19
Sodium 135 mmol/L (135-145) 11/21/23 07:19
Potassium 4.2 mmol/L (3.5-5.1) D 11/21/23 07:19
Chloride 99 mmol/L (98-107) 11/21/23 07:19
Carbon Dioxide 26 mmol/L (22-30) 11/21/23 07:19
BUN 6 mg/dl (7-17) L 11/21/23 07:19
Creatinine 0.7 mg/dL (0.6-1.0) 11/21/23 07:19
eGFR > 60.00 11/21/23 07:19
Glucose 96 mg/dl (70-99) 11/21/23 07:19
Calcium 9.7 mg/dl (8.4-10.2) D 11/21/23 07:19
Phosphorus 2.4 mg/dl (2.5-4.5) L 11/20/23 17:47
Albumin 2.2 g/dl (3.5-5.0) L 11/20/23 17:47
Physical Exam
General: AOx3, Nontoxic , NAD
HEENT: PERRL, EOMI, Anicteric, Conjunctivae Clear, Ear/Nose Intact, Hearing Normal, Oropharynx Clear/Moist, Dentition Intact, Facial Symmetry, Neck Supple, Neck: Trachea Midline, No JVD and No Thyromegaly, no Bruits
Respiratory:coarse to auscultation bilaterally with normal lung exersion
Cardiac: S1/S2 and Regular Rate/Rhythm
Breast: Deferred by me
Abdomen: Soft, Nontender, Nondistended, Normal Bowel Sounds and No Hepatosplenomegaly
Rectal: Deferred by Provider
Genito-urinary: No Costovertebral Tenderness
Extremities: No Clubbing, No Cyanosis and No Edema
Skin: No Rash or open lesions
Neuro: Nonfocal/Grossly Intact, CN II-XII (Intact) and Strength (Musculoskeletal exam 5 out of 5 both upper and lower extremities)
Hematologic/Lymphatic: No Cervical Lymphadenopathy, No Submandibular Lymphadenopathy and No Supraclavicular Lymphadenopathy
Psych: Mood/afflect pleasant, Insight/judgement good and Appropriate
Vascular: plus 2 pedal and radial pulses
Data Reviewed
-
Medical Tests (Nuc Med, Echo etc): Other (EKG report personally reviewed sinus tachycardia with inferior infarct pattern noted at 129 beats per minute)
Labs: Labs Reviewed by me (BMP CBC)
Old Records: Reviewed (Reviewed previous consultation from October 2023: Calcium 10 on 11/15/2023, discharge summary from late October 2019 for review)
Assessment/Plan
-
Impression:
Hypocalcemia
Hypokalemia
Hypomagnesemia
Nausea and vomiting
Chronic pain
History of HTN
History of atrial fibrillation
Cognitive impairment
History of colectomy with loop ileostomy in 2016
Hyperlipidemia
Plan:
I suspect her low calcium levels as well as magnesium and potassium are due to GI loss
Replete electrolytes
Follow-up vitamin D and intact PTH level
Hydrochlorothiazide was supposedly discontinued last admission in late October 2023
Maintain diltiazem in setting of hypertension
Needs better solute intake to maintain electrolytes
[2023-11-21] MEDS: NSS 1000 IV ×2 (10:41→22:45)
--- NOTE | 2023-11-21 11:19 | W.PN.HOSP.TC ---
Addendum entered and electronically signed by Alexi Nichols MD 11/21/23 20:33:
Attending Addendum-
I saw and evaluated the patient. I reviewed the resident�s note and agree with findings and plan as documented in the resident�s note. Sub: patient is a poor historian. states she feels weak. Denies diarrhea. had nausea this am. Complains of chronic
neck and back pain. Full 12 point ROS reviewed and negative except as documented Exam: Vitals reviewed in chart GEN- nad heart RRR lungs clear abd soft LE no edema
# Severe Electrolyte Imbalance
- likely due to diarrhea and poor solute intake
- hypo- phos, mg, k, hco3, phos, calcium
- all repleted
- normal saline Continued
- Nephrology consulted
#N/V/D possibly viral
-continue to monitor
-consider stool studies if continued to have diarrhea.
#Weakness
-PT/OT consulted
#Hypertension
- Continue diltiazem 240 mg daily
# Moderate Cognitive Deficit/Likely Dementia
- will need increased supervision on DC
- f/u as OP for full neuro/psych eval
#Paroxysmal atrial fibrillation
- EKG with sinus tachycardia with PACs
- cont Cardizem
- not on AC
# Chronic Neck/Back Pain
- cont prn oxycodone for now
#Hyperlipidemia
- continue atorvastatin
#History of colectomy with loop ileostomy 2015
#VTE prophylaxis
- Enoxaparin
#Code status
- DNR
Dispo resides at [facility], will likely need snf on dc- cm aware
Time spent coordinating care, review of plan of care with resident, personally reviewed records in EMR, med rec, consults, notes, labs, radiology, d/w nursing � 65 mins
Original Note:
Today's Communication/Plan
-
discharge pending SNF availability
Assessment / Plan
Assessment / Plan
83yo F with PMH afib, htn, copd, CAD, dementia, who presented to ED for generalized weakness, nausea, vomiting, diarrhea. In the ED she was found to have electrolyte imbalances, and she received IV KCl, mag rider, saline, calcium gluconate. She was
admitted for further management. Prior to admission, she was living independently at [facility].
Electrolyte imbalance unclear cause
-k 2.3, ca 5.9, mag 1.1, co2 16 on admission
-In ER, patient received calcium gluconate, mag rider, KCl, normal saline, and nephrology was consulted
-BMP this AM wnl, resolved.
Nausea/Vomiting
?Diarrhea
?Constipation
- continue to monitor
- will check abdominal xray for stool burden, rule out fecal impaction
- if diarrhea persists, consider stool studies
- start protonix for possible gerd, gastritis
- tolerating PO diet, stable for discharge home with outpatient management
Weakness
-PT/OT consulted
-likely will need SNF placement after discharge
Hypertension- Continue diltiazem 240 mg daily
Paroxysmal atrial fibrillation- Continue diltiazem 240mg daily
- Sinus tachycardia on admission, rate wnl now
Hyperlipidemia- continue atorvastatin
History of colectomy with loop ileostomy 2015
Diet: regular
VTE prophylaxis: Enoxaparin
Code status: DNR
POA: Daughter Esthela
Anticipated Discharge: Within 24 hours
Subjective/Interval History
-
Date of Service: November 21, 2023
No acute events overnight. She reports pain in her back which she has chronically, but it is worse in the hospital. Also complains of headache and pain in right shoulder/right upper back. She had nausea this morning, which improved after eating
breakfast. She denies vomiting, diarrhea, constipation. She states her last bowel movement was a few days ago. She is a poor historian and ER documentation states patient reported multiple episodes of diarrhea yesterday. Denies lightheadedness,
dizziness, chest pain, shortness of breath. She is tolerating PO diet
Objective Data
-
Labs:
Laboratory Results
11/21/23
07:19
WBC 9.1
Hgb 11.8 L
Hct 34.0 L
Plt Count 319
Sodium 135
Potassium 4.2 D
Chloride 99
Carbon Dioxide 26
BUN 6 L
Creatinine 0.7
Glucose 96
Calcium 9.7 D
Vital Signs:
Vital Signs
Temp Pulse Resp BP Pulse Ox
98.1 F 79 16 165/80 97
11/21/23 11:04 11/21/23 11:04 11/21/23 11:04 11/21/23 11:04 11/21/23 11:04
I&O
11/20/23 11/21/23 11/22/23
06:59 06:59 06:59
Intake Total 620 / 620
Output Total 400 / 400
Balance 620 / 620 -400 / -400
Review of Systems
-
Unable to obtain full review of systems at this time due to: Dementia
History Source: Patient
Physical Exam
-
General: Well Developed, Well Nourished, No Apparent Distress and Conversant
HEENT: Normocephalic and Atraumatic
Respiratory: Clear to Auscultation and Non Labored Respirations
Cardiac: Regular Rhythm and S1/S2
GI: Soft, Nontender, Nondistended and Normal Bowel Sounds
Musculoskeletal: No Cyanosis and No Edema
Neuro: Awake and Alert
Psych: Calm and Confused (possible dementia)
Data Reviewed
-
Labs: Labs Reviewed by me and Discussed with Physician
--- NOTE | 2023-11-21 12:41 | CM ---
Addendum entered by Sona Gallo 11/21/23 14:50:
Amanda has a 3 day stay from a previous stay that is within 30 days, so will qualify for SNF coverage.
CM spoke with Amanda about SNF and she is agreeable to going somewhere, as she notices her weaknesses and also has pain.
Referrals sent to [facility] (pt's preference), [facility], and [facility]. Most facilities are not accepting new admissions over the holiday weekend unless they were planned ahead of time, so anticipate delay in discharge due to the holiday.
Plan: CM will continue to follow to facilitate transfer to SNF when bed available.
Original Note:
CM met briefly with Amanda at bedside; contacted her daughter Esthela [phone], who does not live locally. I reviewed PT/OT recommendations and option for SNF admission prior to returning to her independent apartment at [facility]. Amanda did
have a 3 day inpatient stay last month, so is eligible for SNF admission if desired. Daughter advised CM that Amanda has been receiving therapy through [facility] and would like that resumed when she returns to [facility], but is considering SNF.
Daughter Esthela would like to speak with Dr. Nichols for an update before she makes any decisions. TT sent to Dr. Nichols with Esthela's phone number.
CM will continue to follow for discharge plans - currently SNF vs. return to [place] at [facility] and [facility] services.
[2023-11-21] MEDS: LIDOCAINE 4% PATCH 1 PATCH TOPICAL (13:25)
[2023-11-21] MEDS: ROXICODONE 5 MG PO ×2 (13:26→21:51)
[2023-11-21] MEDS: LOVENOX 40 MG SC (16:54)
[2023-11-22 03:21] VITALS: BP 107/67
[2023-11-22 06:30] LABS: Hematocrit 32.8 % (37.0-47.0); Hemoglobin 11.1 g/dL (12.0-16.0); Mean Corp Hgb Conc. 33.8 g/dL (33.0-37.0); Mean Corpuscular Hgb 31.4 pg (27.0-31.0); Mean Corpuscular Volume 92.7 fL (81.0-99.0); Mean Platelet Volume 9.3 fL (7.4-10.4); Platelet Count 277 10^3/uL (130-400); Red Blood Cell Count 3.54 10^6/uL (4.20-5.40); Red Cell Dist. Width 14.8 % (11.5-14.5); White Blood Cell Count 8.8 10^3/uL (4.8-10.8)
[2023-11-22 06:57] LABS: Blood Urea Nitrogen 4 mg/dl (7-17); Calcium 9.3 mg/dl (8.4-10.2); Carbon Dioxide 29 mmol/L (22-30); Chloride 101 mmol/L (98-107); Estimated Creatinine Clearance 51 ml/min; Glucose 88 mg/dl (70-99); Magnesium 2.1 mg/dl (1.6-2.3); Potassium 4.1 mmol/L (3.5-5.1); Sodium 136 mmol/L (135-145); eGFR > 60.00
[2023-11-22 07:33] VITALS: BP 183/90
[2023-11-22] MEDS: LIDOCAINE 4% PATCH 1 PATCH TOPICAL (08:10)
[2023-11-22] MEDS: PROTONIX IV 40 MG IV (08:10)
[2023-11-22] MEDS: CARDIZEM CD 240 MG PO (08:10)
[2023-11-22] MEDS: LIPITOR 10 MG PO (08:10)
[2023-11-22] MEDS: NSS (PRESERVATIVE FREE) 10 ML IV (08:11)
--- NOTE | 2023-11-22 12:12 | W.PN.NEPH.PH ---
Today's Communication / Plan
-
Sign off
Assessment/Plan
-
Impression:
Hypocalcemia
Hypokalemia
Hypomagnesemia
Nausea and vomiting
Chronic pain
History of HTN
History of atrial fibrillation
Cognitive impairment
History of colectomy with loop ileostomy in 2016
Hyperlipidemia
Plan:
We suspected her low calcium levels as well as magnesium and potassium are due to GI loss
Repleted electrolytes
Follow-up vitamin D and intact PTH level
Hydrochlorothiazide was discontinued last admission in late October 2023
Maintain diltiazem in setting of hypertension
Needs better solute intake to maintain electrolytes
Nothing more to add
Can add low-dose losartan if blood pressure continues to elevate
We will sign off
-
-
Date of Service: November 22, 2023
CC / HPI / ROS
-
Chief Complaint:
Electrolyte abnormality
History of Present Illness:
Hemodynamically stable on diltiazem
Potassium, magnesium and calcium repleted
Review of Systems:
Nonoliguric
No fevers
No reported chest pain or shortness of
Labs
-
Labs:
WBC 8.8 10^3/uL (4.8-10.8) 11/22/23 05:09
RBC 3.54 10^6/uL (4.20-5.40) L 11/22/23 05:09
Hgb 11.1 g/dL (12.0-16.0) L 11/22/23 05:09
Hct 32.8 % (37.0-47.0) L 11/22/23 05:09
Plt Count 277 10^3/uL (130-400) 11/22/23 05:09
Sodium 136 mmol/L (135-145) 11/22/23 05:09
Potassium 4.1 mmol/L (3.5-5.1) 11/22/23 05:09
Chloride 101 mmol/L (98-107) 11/22/23 05:09
Carbon Dioxide 29 mmol/L (22-30) 11/22/23 05:09
BUN 4 mg/dl (7-17) L 11/22/23 05:09
Creatinine 0.7 mg/dL (0.6-1.0) 11/22/23 05:09
eGFR > 60.00 11/22/23 05:09
Glucose 88 mg/dl (70-99) 11/22/23 05:09
Calcium 9.3 mg/dl (8.4-10.2) 11/22/23 05:09
Phosphorus 2.4 mg/dl (2.5-4.5) L 11/20/23 17:47
Albumin 2.2 g/dl (3.5-5.0) L 11/20/23 17:47
Physical Exam
-
Vital Signs:
Vital Signs
Temp Pulse Resp BP Pulse Ox
98 F 81 22 183/90 95
11/22/23 07:33 11/22/23 07:33 11/22/23 07:33 11/22/23 07:33 11/22/23 07:33
Cardiovascular:: Regular rate and rhythm
Respiratory:: Bilateral: Coarse
Lung Excursion:: Normal
Abdomen:: Nontender and Soft
Bowel Sounds:: Normal
Extremity Edema:: None: Bilateral:
Peacock Catheter: No
--- NOTE | 2023-11-22 12:58 | W.PN.HOSP.TC ---
Today's Communication/Plan
-
Discharge to SNF when available
Assessment / Plan
Assessment / Plan
83yo F with PMH afib, htn, copd, CAD, dementia, who presented to ED for generalized weakness, nausea, vomiting, diarrhea. In the ED she was found to have electrolyte imbalances, and she received IV KCl, mag rider, saline, calcium gluconate. She was
admitted for further management. Prior to admission, she was living independently at [facility].
Electrolyte imbalance unclear cause
-k 2.3, ca 5.9, mag 1.1, co2 16 on admission
-In ER, patient received calcium gluconate, mag rider, KCl, normal saline, and nephrology was consulted
-BMP and mag this AM wnl, resolved.
-No indication to continue trending BMP daily, will reassess prn.
Nausea/Vomiting
?Diarrhea
?Constipation
- continue to monitor
- abdominal xray 11/20 shows moderate amount of stool in colon with no evidence of bowel obstruction, abnormal distention, or impaction
- Continue protonix for possible gerd, gastritis
- Unclear if constipation is chronic issue or associated with poor PO intake
- Will start miralax, continue encouraging PO hydration and nutrition
- tolerating PO diet, stable for discharge home with outpatient management
Weakness
-PT/OT consulted
-Plan for SNF rehab at discharge, patient and daughter agreeable
Hypertension- Continue diltiazem 240 mg daily
Paroxysmal atrial fibrillation- Continue diltiazem 240mg daily
- Sinus tachycardia on admission, rate wnl now
Hyperlipidemia- continue atorvastatin
History of colectomy with loop ileostomy 2015
Dementia
- Discussed with daughter Esthela on phone yesterday PM
- I expressed concern to daughter and Amanda regarding safety of living independently and managing her own medications, including the possibility of repeat dosing or missed dosing due to misremembering. Patient wants to continue living
independently, and her daughter is considering options.
Diet: regular
VTE prophylaxis: Enoxaparin
Code status: DNR
POA: Daughter Esthela
Dispo planning: SNF when available
Anticipated Discharge: Within 24 hours
Subjective/Interval History
-
Date of Service: November 22, 2023
No acute events overnight. She is a poor historian due to memory deficits. Today she tells me 'I never had any pain except for right shoulder' this admission. She incorrectly reports that she was only fed dinner last night and forgets that her nurse
has administered medications. She is well aware of her memory deficits, and reports 'I know my mind isn't right.' She expresses frustration about this.
Today, she denies headache, lightheadedness, dizziness, chest pain, shortness of breath, nausea, vomiting, diarrhea. Reports last bowel movement was a few days ago. She tolerates PO intake.
Objective Data
-
Labs:
Laboratory Results
11/22/23
05:09
WBC 8.8
Hgb 11.1 L
Hct 32.8 L
Plt Count 277
Sodium 136
Potassium 4.1
Chloride 101
Carbon Dioxide 29
BUN 4 L
Creatinine 0.7
Glucose 88
Calcium 9.3
Vital Signs:
Vital Signs
Temp Pulse Resp BP Pulse Ox
98 F 81 22 183/90 95
11/22/23 07:33 11/22/23 07:33 11/22/23 07:33 11/22/23 07:33 11/22/23 07:33
I&O
11/21/23 11/22/23 11/23/23
06:59 06:59 06:59
Intake Total 620 / 620 1360 / 1360
Output Total 400 / 400
Balance 620 / 620 960 / 960
Review of Systems
-
Unable to obtain full review of systems at this time due to: Dementia
History Source: Patient
All other systems: Reviewed and negative
Physical Exam
-
General: Well Developed, Comfortable and Conversant
HEENT: Normocephalic and Atraumatic
Respiratory: Clear to Auscultation and Non Labored Respirations
Cardiac: Regular Rhythm and S1/S2
GI: Soft, Nontender, Nondistended and Normal Bowel Sounds
Musculoskeletal: No Cyanosis and No Edema
Skin: Warm and Dry
Neuro: Awake and Alert
Psych: Calm, Confused and Apparent Dementia (poor insight and judgement)
Data Reviewed
-
Diagnostic Radiology: Image personally visualized and interpreted, Report Reviewed by me, Discussed with Physician, Discussed with Nurse and Discussed with Patient
Labs: Labs Reviewed by me and Discussed with Physician
[2023-11-22] MEDS: MIRALAX 17 GRAMS PO (13:41)
[2023-11-22 15:10] LABS: Vitamin D, 25-OH*** 37.3 ng/mL (30-80)
[2023-11-22 15:31] VITALS: BP 154/74
[2023-11-22] MEDS: ZOFRAN 4 MG IV ×2 (16:30→23:16)
[2023-11-22] MEDS: LOVENOX 40 MG SC (16:32)
[2023-11-22] MEDS: ROXICODONE 5 MG PO (21:40)
[2023-11-22 23:24] VITALS: BP 135/76
[2023-11-23 07:15] VITALS: BP 166/87
[2023-11-23 08:14] LABS: Hematocrit 33.1 % (37.0-47.0); Hemoglobin 11.5 g/dL (12.0-16.0); Mean Corp Hgb Conc. 34.7 g/dL (33.0-37.0); Mean Corpuscular Hgb 31.1 pg (27.0-31.0); Mean Corpuscular Volume 89.5 fL (81.0-99.0); Mean Platelet Volume 9.3 fL (7.4-10.4); Platelet Count 292 10^3/uL (130-400); Red Cell Dist. Width 14.7 % (11.5-14.5); White Blood Cell Count 8.2 10^3/uL (4.8-10.8)
[2023-11-23 08:25] LABS: Blood Urea Nitrogen 5 mg/dl (7-17); Calcium 9.6 mg/dl (8.4-10.2); Carbon Dioxide 30 mmol/L (22-30); Chloride 98 mmol/L (98-107); Estimated Creatinine Clearance 45 ml/min; Glucose 91 mg/dl (70-99); Potassium 4.2 mmol/L (3.5-5.1); Sodium 135 mmol/L (135-145); eGFR > 60.00
--- NOTE | 2023-11-23 08:51 | W.PN.HOSP.TC ---
Today's Communication/Plan
-
discharge to snf today
Assessment / Plan
Assessment / Plan
83yo F with PMH afib, htn, copd, CAD, dementia, who presented to ED for generalized weakness, nausea, vomiting, diarrhea. In the ED she was found to have electrolyte imbalances, and she received IV KCl, mag rider, saline, calcium gluconate. She was
admitted for further management. Prior to admission, she was living independently at [facility].
Electrolyte imbalance: hypokalemia, hypocalcemia, hypomagnesemia
-k 2.3, ca 5.9, mag 1.1, co2 16 on admission; unclear cause
-In ER, patient received calcium gluconate, mag rider, KCl, normal saline, and nephrology was consulted
- Daily BMP wnl x3, mag wnl. Discussed with patient's daughter on phone.
- Resolved. No indication to trend BMP
Nausea/Vomiting
?Diarrhea
?Constipation
- continue to monitor
- abdominal xray 11/20 shows moderate amount of stool in colon with no evidence of bowel obstruction, abnormal distention, or impaction
- Continue protonix while inpatient for possible gerd, gastritis.
- Unclear if constipation is chronic issue or associated with poor PO intake [employer]
- Continue daily miralax until BM, then can transition to prn. Continue encouraging PO hydration and nutrition, and ambulation
- Tolerating PO diet, stable for discharge home with outpatient management
- Discussed with patient's daughter today, and she is interested in appetite stimulant. Recommended she follow up with PCP +/- outpatient GI if needed. Discussed dietary supplements such as ensure to improve nutritional intake if patient does not
have big appetite to eat meal.
Weakness
- PT/OT consulted
- Plan for SNF rehab at discharge, patient and daughter agreeable
Hypertension- Continue diltiazem 240 mg daily
Paroxysmal atrial fibrillation- Continue diltiazem 240mg daily
- Sinus tachycardia on admission, rate wnl now
Hyperlipidemia- continue atorvastatin
History of colectomy with loop ileostomy 2015
Dementia
- Discussed with daughter Esthela on phone 9/ PM and today before discharge
- I expressed concern to daughter and Amanda regarding safety of living independently and managing her own medications, including the possibility of repeat dosing or missed dosing due to misremembering. Increased concern for oxycodone and risk of
overdose even accidentally. Patient wants to continue living independently, and her daughter is considering options.
Diet: regular
VTE prophylaxis: Enoxaparin
Code status: DNR
POA: Daughter Esthela
Dispo planning: discharge to snf today ([facility])
Anticipated Discharge: Today
Subjective/Interval History
-
Date of Service: November 23, 2023
No acute events overnight. She is a poor historian due to memory deficits, which she is aware of and frustrated by. Denies headache, lightheadedness, dizziness, chest pain, shortness of breath, nausea, vomiting, diarrhea, abdominal pain or bloating.
No bowel movement this hospitalization. She reports 'I don't feel constipated.'
Objective Data
-
Labs:
Laboratory Results
11/23/23
06:19
WBC 8.2
Hgb 11.5 L
Hct 33.1 L
Plt Count 292
Sodium 135
Potassium 4.2
Chloride 98
Carbon Dioxide 30
BUN 5 L
Creatinine 0.8
Glucose 91
Calcium 9.6
Vital Signs:
Vital Signs
Temp Pulse Resp BP Pulse Ox
97.8 F 80 16 166/87 94
11/23/23 07:15 11/23/23 07:15 11/23/23 07:15 11/23/23 07:15 11/23/23 07:15
I&O
11/22/23 11/23/23 11/24/23
06:59 06:59 06:59
Intake Total 1360 / 1360 600 / 600
Output Total 400 / 400
Balance 960 / 960 600 / 600
Review of Systems
-
History Source: Patient
All other systems: Reviewed and negative
Physical Exam
-
General: Well Developed, Comfortable and Conversant
HEENT: Normocephalic and Atraumatic
Respiratory: Clear to Auscultation and Non Labored Respirations
Cardiac: Regular Rhythm and S1/S2
GI: Soft, Nontender, Nondistended and Normal Bowel Sounds
Musculoskeletal: No Cyanosis and No Edema
Skin: Warm and Dry
Neuro: Awake and Alert
Psych: Calm and Apparent Dementia
Data Reviewed
-
Labs: Labs Reviewed by me, Discussed with Physician, Discussed with Patient and Discussed with Family
[2023-11-23] MEDS: MIRALAX 17 GRAMS PO (09:12)
[2023-11-23] MEDS: NSS (PRESERVATIVE FREE) 10 ML IV (09:13)
[2023-11-23] MEDS: ZOFRAN 4 MG IV (09:13)
[2023-11-23] MEDS: PROTONIX IV 40 MG IV (09:13)
[2023-11-23] MEDS: CARDIZEM CD 240 MG PO (09:13)
[2023-11-23] MEDS: LIDOCAINE 4% PATCH 1 PATCH TOPICAL (09:14)
[2023-11-23] MEDS: LIPITOR 10 MG PO (09:14)
[2023-11-23 10:17] VITALS: BP 149/120; PULSE 90; O2SAT 98
[2023-11-23 11:10] LABS: COVID-19 Antigen Negative (Negative)
--- NOTE | 2023-11-23 13:34 | W.DCSUMMARY ---
Discharge Summary
Discharge Data
Date of Admission: 11/20/23
Date of Discharge: 11/23/23
-
Pending Results: No
Hospital Course
Discharging Physician : Dr. Gagnon, Dr. Borjas
Disposition : SNF
Primary care physician : Dr. Power
Principal Discharge diagnosis : Hypokalemia, hypocalcemia, hypomagnesemia
Chronic Discharge diagnosis : Chronic nausea, ?constipation, afib not on anticoagulation, COPD, DYLAN, HTN, HLD, dementia, s/p loop ileostomy/sigmoidectomy
Hospital Course :
Presented to the ED 11/19 for generalized weakness, nausea, vomiting, diarrhea. In ED she was found to have electrolyte imbalances (K 2.3, Ca 5.9, mag 1.1, co2 16) and was treated with calcium gluconate, mag rider, KCl, normal saline. Her
electrolytes remained within normal limits without further intervention for the remainder of hospitalization. She has dementia with obvious memory deficits and is a poor historian. Given uncertainty of last bowel movement, abdominal xray was
obtained and showed moderate amount of stool, no impaction or obstruction. Daily miralax was started. On day of discharge, she was stable. She was discharged to SNF.
Important imaging findings :
Abdomen xray 11/21
IMPRESSION:
1. No radiographic evidence for bowel obstruction.
2. Moderate volume of fecal material in the ascending colon.
3. No radiographic evidence for abnormal distention or increased volume of fecal material in the distal colon or rectum.
4. Previous sigmoidectomy and partial small bowel resection
Procedure findings : N/A
Discharge Plan
-
Patient Disposition: Fdc/SNF
Discharge Diagnosis/Procedures: Electrolyte abnormalities: hypokalemia, hypocalcemia, hypomagnesemia
Nausea
Dementia
Condition: Fair
Diet: Regular
Activity: As tolerated
Driving Restrictions: No driving
Bathing Restrictions: OK to Shower
Blood Work: BMP and Mag level in 5 days after discharge
Other Services: PT and OT
Instructions: Dementia (including Alzheimer disease), Caring for someone with Alzheimer disease or dementia, Generalized Weakness (DC), BLOOD PRESSURE
Referrals:
Parvez Power MD [Family Provider] - in one to two weeks (Follow up with PCP in 1-2 weeks for continued care. You can ask your PCP or GI about starting an appetite stimulant.)
Additional Discharge Medication Instructions: Do not take hydrochlorothiazide.
Prescriptions:
New
polyethylene glycol 3350 [HealthyLax] 17 gram Powder In Packet
17 g PO DAILY Qty: 14 0RF
Rx Instructions:
Take once daily until bowel movement. Then can use as needed.
Continued
atorvastatin 10 MG tablet
10 mg PO DAILY Qty: 0 0RF
diltiazem HCl 240 mg Tablet Extended Release 24 Hr
240 mg PO DAILY
acetaminophen [Tylenol Extra Strength] 500 mg Tablet
1,000 mg PO Q6HPRN PRN (Reason: mild pain)
oxycodone 5 mg Tablet
5 mg PO Q8HPRN PRN (Reason: severe pain)
Patient Comments:
11/20/23: last filled 11/18/23 for 21 tablets over 7 days
Discharge Orders:
Discharge Patient (As Directed); Ordered 11/23/23
Ordered By: Sona Gagnon
Discharge Date and Time
Discharge Date/Time: 11/23/23 17:02
Print Language: ROMANIAN
[2023-11-23 14:32] VITALS: BP 157/88
--- NOTE | 2023-11-23 15:57 | CM ---
MD entered order for discharge.
PT from [facility]
PT OT indicate ASNF needs.
Reviewed with pt .
Spoke with pt and [facility] Adriane [phone] both agree with [facility] .
[facility] at [facility].
Covid test requested done and results negative.
IMM reviewed pt signed copy on chart.
Pt requested transportation. Offered [employer] pt given number to pay for [employer] van .
[facility]
report [phone]
fax [phone]
PLAN To [facility] via [employer]
== END 2023-11-23 17:02 | DRG 641 ==
LOC: 4 EAST ACU 20:14
PROVIDERS: Registered Nurse; Student in an Organized Health Care Education/Training Program; ADMITTING PHYSICIAN Internal Medicine; ATTENDING PHYSICIAN Internal Medicine; EMERGENCY PHYSICIAN Student in an Organized Health Care Education/Training Program; FAMILY PHYSICIAN Family Medicine; OTHER PHYSICIAN Specialist
DX: E87.6 Hypokalemia (principal); Z87.891 Personal history of nicotine dependence; E83.51 Hypocalcemia; E83.42 Hypomagnesemia; F03.90 Unspecified dementia, unspecified severity, without behavioral disturbance, psychotic disturbance, mood disturbance, and anxiety; Z11.52 Encounter for screening for COVID-19
CPT/HCPCS: 74018; 80048; 80053; 81003; 81015; 82306; 83735; 84100; 84443; 84484; 85025; 85027; 87070; 87811; 93005; 96365; 96366; 96375; 97162; 97166; 97530; 97535; 99291